=== PATIENT | male | born 1970 | race Caucasian/White ===

== ENCOUNTER 2022-06-09 08:29 | Emergency (ER) | payer OTHER, SELFPAY ==
[2022-06-09 08:36] VITALS: BP 143/88; PULSE 92; RESP 16; TEMP 37.3; O2SAT 97
--- NOTE | 2022-06-09 08:55 | ED.URI ---
HPI - URI/Sore Throat General Chief Complaint: Upper Respiratory Infection Stated Complaint: Headache,Congestion,Fatigue Time Seen by Provider: 06/09/22 08:45 Source: patient, RN notes reviewed and old records reviewed Mode of arrival: ambulatory Limitations: no limitations History of Present Illness HPI Narrative: 52-year-old male accompanied by presents to [facility] with complaints of sinus drainage, sore throat, fevers with chills and sweats,headache,body aches, fatigue since last night. Patient reports he has had COVID immunization but no booster has not had flu shot. Patient is not taking any medications [id number] for his symptoms. Patient reports highest fever 100.7F. Patient states did have COVID 3 weeks ago and she received antiviral medication he would like to receive RX for medication also. MD elicited complaint: cough and sore throat Onset (ago): day(s) (Last night) Pain scale (0-10): 4 Able to tolerate fluids by mouth: Yes Treatments prior to arrival: none Related Data Allergies Allergy/AdvReac Type Severity Reaction Status Date / Time codeine Allergy Unknown Violent Verified 06/09/22 08:39 vomiting Review of Systems Review of Systems: CONSTITUTIONAL: Reports malaise, chills, sweats, or fever. EYES: Denies visual changes, redness, or discharge. ENT: Reports rhinorrhea, congestion, sinus pain, otalgia and sore throat. CARDIOVASCULAR: Denies chest pain, palpitations, or edema. RESPIRATORY: Reports no cough.? Denies dyspnea. GASTROINTESTINAL: Denies abdominal pain, nausea, vomiting, diarrhea SKIN: Denies rash or itching. MUSCULOSKELETAL: reports myalgia. NEUROLOGIC: Reports headache. All systems reviewed & are unremarkable except as noted in HPI and below PMFSH Past Medical History Medical History Diverticulitis Diverticulitis Fatigue Hyperglycemia Keloid Lipid screening Polyarthralgia Vitamin D deficiency Surgical History Surgical History H/O vasectomy 1998 History of orthopedic surgery Knee, Wrist, Shoulder, Ankle Family History Family History Father Family history of malignant neoplasm Family history of coronary artery disease Diabetes mellitus Family history of blood dyscrasia Grandparent Family history of primary malignant neoplasm of liver Family history of throat cancer Family history of liver disease Sibling Family history of obesity Mother Family history of blood dyscrasia Depression Other Family history of cardiovascular disease Social History Social History (Updated 06/09/22 @ 09:30 by Adriane Zaidi NP) Smoking status: Never smoker Smokeless tobacco user: chewing tobacco Alcohol intake: current Drinks per week: 3 Substance use: never Living arrangements: with family Gender identity (if verbalized by the patient): Male Comments At time of signature, agree with nursing past medical, surgical, social and family history. There is no relevant family history pertinent to the presenting complaint Exam Narrative: GENERAL: Well-appearing, well-nourished, and in no acute distress. HEAD: Normocephalic EYES: PERRLA, conjunctivae clear ENT: Nares clear, turbinates edematous and erythematous, clear discharge. Mucous membranes moist. TM pearly schultz with dull light reflex bilaterally; no tragal tenderness. Oropharynx erythematous without lesions. Tonsils red enlarged and without exudate, no drooling, no hoarseness, no trismus, uvula midline red and with some swelling, post nasal discharge noted. NECK: Supple. No lymphadenopathy CHEST: Clear to auscultation, breath sounds equal. No wheezing, rhonchi, rales, or stridor. No respiratory distress, speaks in full sentences.SAO2 97% on room air HEART: Regular rate and rhythm. No murmur heard. SKIN:
== END 2022-06-09 09:21 | disposition home or self-care (01) ==
PROVIDERS: Emergency Provider Registered Nurse; PCP Family Medicine
DX: U07.1 COVID-19 (principal)
CPT/HCPCS: 87426; 87804; 99213; C9803; G0463

== ENCOUNTER 2022-10-21 08:03 | Emergency (ER) | payer OTHER, SELFPAY ==
--- NOTE | ~2022-10-21 | XR_ITS ---
Left foot Technique: AP, oblique, and lateral views were obtained. Clinical History: First metatarsal pain Findings: No acute fracture or dislocation is seen. Osseous alignment is anatomic. There is moderate degenerative change at the first metatarsophalangeal joint. Soft tissues are unremarkable. Impression: No fracture or dislocation. Moderate degenerative change of the first metatarsophalangeal joint. Reviewed, dictated and finalized at location . Impression: No fracture or dislocation. Moderate degenerative change of the first metatarsophalangeal joint.
[2022-10-21 08:14] VITALS: BP 144/100; PULSE 86; RESP 18; TEMP 36.5; O2SAT 100
--- NOTE | 2022-10-21 08:23 | ED.LOWEXIN ---
HPI - Extremity Injury (Lower) General Chief Complaint: Extremity Injury, Lower Stated Complaint: Lt Foot Pain and Swelling Source: patient Mode of arrival: ambulatory Limitations: no limitations History of Present Illness HPI Narrative: 52-year-old male presenting for complaint of left foot pain after injury last night. Pain is primarily to the base of the left great toe. He states he tripped over his dog and struck the left foot on the wall. He applied ice and elevated the foot, and took ibuprofen last night. Also obtained crutches and has been using them today. He reports the pain is worse this morning with swelling, and pain with any movement of the toe or with walking. He denies deformity, numbness, tingling, weakness of the foot. Has not taken anything for pain this morning. Related Data Allergies Allergy/AdvReac Type Severity Reaction Status Date / Time codeine Allergy Unknown Violent Verified 10/21/22 08:27 vomiting Review of Systems Review of Systems: CONSTITUTIONAL: Denies body aches, fever, chills EYES: Denies visual changes ENT: Denies rhinorrhea, congestion CARDIOVASCULAR: Denies chest pain, palpitations, or edema. RESPIRATORY: Denies cough or dyspnea. GASTROINTESTINAL: Denies abdominal pain, nausea, vomiting, or diarrhea. SKIN: Denies rash, itching, or wounds. MUSCULOSKELETAL: Reports left great toe/foot pain denies back pain, or myalgia. NEUROLOGIC: Denies headache, numbness, tingling, or weakness. PSYCH: Denies depression or anxiety. All systems reviewed & are unremarkable except as noted in HPI and below PMFSH Past Medical History Medical History Diverticulitis Diverticulitis Fatigue Hyperglycemia Keloid Lipid screening Polyarthralgia Vitamin D deficiency Surgical History Surgical History H/O vasectomy 1998 History of orthopedic surgery Knee, Wrist, Shoulder, Ankle Family History Family History Father Family history of malignant neoplasm Family history of coronary artery disease Diabetes mellitus Family history of blood dyscrasia Grandparent Family history of primary malignant neoplasm of liver Family history of throat cancer Family history of liver disease Sibling Family history of obesity Mother Family history of blood dyscrasia Depression Other Family history of cardiovascular disease Social History Social History Smoking status: Never smoker Smokeless tobacco user: chewing tobacco Alcohol intake: current Drinks per week: 3 Substance use: never Living arrangements: with family Gender identity (if verbalized by the patient): Male Comments At time of signature, I have reviewed and agree with nursing past medical, surgical, social and family history unless otherwise noted. Please see nursing chart for further information. There is no relevant family history pertinent to the presenting complaint Exam Narrative: GENERAL: Well-appearing, and in no acute distress. NECK: Supple. CHEST: Speaks in full sentences. No respiratory distress. HEART: Regular rate and rhythm. Normal and equal peripheral pulses. EXTREMITIES: Left foot 1st MTP joint with tenderness to palpation to dorsal and plantar aspects, mild swelling to joint. Nontender IP joint. Ice pack was applied, no warmth noted. Left foot has normal strength and sensation, Limited range of motion of 1st toe due to pain with movement. No bruising, No open wounds, or obvious deformity; alignment normal, pulse palpable and equal bilaterally, skin warm, dry, pink. Capillary refill less than 3 seconds. SKIN: Warm, dry, no rash. NEURO: Alert and oriented x3. PSYCH: Normal mood and affect Course Course Emergency Course: Patient is aware of diagnosis, understand
--- NOTE | 2022-10-21 08:52 | PC.NURSE ---
RADIOLOGY DISC PROVIDED
== END 2022-10-21 08:46 | disposition home or self-care (01) ==
PROVIDERS: Emergency Provider Nurse Practitioner Family; PCP Family Medicine
DX: M79.672 Pain in left foot (principal); F17.220 Nicotine dependence, chewing tobacco, uncomplicated
CPT/HCPCS: 73630; 99213; G0463

== ENCOUNTER 2022-12-22 15:33 | Outpatient (CLI) | payer OTHER, SELFPAY ==
--- NOTE | ~2022-12-22 | CT_ITS ---
EXAMINATION: CTA chest PE protocol DATE: 12/22/2022 15:53 INDICATION: Acute dyspnea TECHNIQUE: Computed tomography (CT) pulmonary angiogram of the chest was performed with 100 mL Omnipa que-350 intravenous contrast. Additional 3D reconstructions utilizing coronal maximum intensity proje ction (MIP) were performed. Automated exposure control and iterative reconstruction technique were em ployed. The dose-length product was 711.19 mGy-cm. COMPARISON: None FINDINGS: Good contrast opacification of the pulmonary arteries. There is mild streak artifact from dense contr ast in the superior vena cava and right atrium. Mild scattered respiratory motion artifact. Together this mildly decreases sensitivity in some of the smaller subsegmental pulmonary arteries particularly at the lung bases. No pulmonary embolism identified. Small lung volumes and mosaic attenuation with dependent groundglass opacities most likely representing dependent atelectasis. No pneumonia, pulmona ry edema, pleural effusion or pneumothorax. Heart size is normal. No pericardial effusion. Thoracic a chandler is normal in caliber with no dissection. No pathologically enlarged thoracic lymphadenopathy. Bi lateral mild gynecomastia. Visualized upper abdomen is unremarkable. Mild thoracic and severe lower c ervical spondylosis. IMPRESSION: 1. No pulmonary embolism or other acute cardiopulmonary disease. Reviewed, dictated and finalized at location A.
== END 2022-12-22 15:34 | disposition home or self-care (01) ==
LOC: ANHIMG 15:35
PROVIDERS: PCP Family Medicine; Visit Provider Family Medicine
DX: R06.00 Dyspnea, unspecified (principal)
CPT/HCPCS: 71275; Q9967

== ENCOUNTER 2022-12-25 08:20 | Outpatient (CLI) | payer OTHER, SELFPAY ==
[2022-12-25 08:47] LABS: Basophils Absolute Auto 0.1 K/mm3 (0.0-0.1); Basophils Percent Auto 0.8 % (0.2-1.2); Eosinophils Absolute Auto 0.4 K/mm3 (0-0.3); Eosinophils Percent Auto 5.3 % (0-4.4); Hematocrit 45.9 % (42.0-52.0); Hemoglobin 15.5 g/dL (14.0-18.0); Immature Granulocyte Absolute 0.01 K/mm3 (0.00-0.031); Immature Granulocyte Percent A 0.1 % (0-0.5); Lymphocytes Absolute Auto 1.85 K/mm3 (0.9-3.2); Lymphocytes Percent Auto 25.1 % (18.3-44.2); Mean Corpuscular HGB Conc 33.8 g/dl (32-36); Mean Corpuscular Hemoglobin 31.4 pg (26-34); Mean Corpuscular Volume 92.9 fl (80-100); Mean Platelet Volume 9.6 fl (7.4-10.4); Monocytes Absolute Auto 0.6 K/mm3 (0.1-0.6); Monocytes Percent Auto 8.5 % (2.6-8.5); Neutrophils Absolute Auto 4.4 K/mm3 (1.3-6.7); Neutrophils Percent Auto 60.2 % (45.5-73.1); Platelet Count Result 245 k/mm3 (150-375); Red Blood Count 4.94 M/mm3 (4.6-6.20); Red Cell Distribution Width 12.3 % (11.5-14.5); White Blood Count 7.4 K/mm3 (4.5-10.0)
[2022-12-25 08:50] LABS: Alanine Aminotransferase 20 U/L (6-50); Albumin Level 4.4 g/dL (3.5-5.1); Alkaline Phosphatase 61 U/L (38-126); Anion Gap 7 mmol/L (8-16); Aspartate Amino Transferase 21 U/L (17-59); Bilirubin,Total 0.5 mg/dL (0.2-1.3); Blood Urea Nitrogen 21 mg/dL (9-20); Calcium 9.1 mg/dL (8.4-10.2); Carbon Dioxide 28 mmol/L (22-30); Chloride 105 mmol/L (98-107); Estimated Glomerular Filt Rate > 60; Glucose 113 mg/dL (65-110); Potassium 4.2 mmol/L (3.4-5.0); Sodium 140 mmol/L (137-145)
[2022-12-25 09:04] LABS: Cholesterol 216 mg/dL (0-200); HDL Direct 55 mg/dL; Triglycerides 95 mg/dL (<150)
[2022-12-25 09:10] LABS: Hemoglobin A1C 5.3 % (<5.7)
[2022-12-25 09:15] LABS: LDL Cholesterol Direct 118 mg/dL
[2022-12-25 09:38] LABS: Free T4 Free Thyroxine 0.94 ng/mL (0.78-2.19)
[2022-12-25 10:36] LABS: Vitamin D 25 Hydroxy 37.8 ng/mL
[2022-12-28 17:39] LABS: Prostate Specific Antigen 0.8 ng/mL (< OR = 4.0)
== END 2022-12-25 08:21 | disposition home or self-care (01) ==
LOC: ANHLAB 08:22
PROVIDERS: PCP Family Medicine; Visit Provider Family Medicine
DX: R53.83 Other fatigue (principal); E55.9 Vitamin D deficiency, unspecified; R73.9 Hyperglycemia, unspecified; R06.00 Dyspnea, unspecified; Z13.220 Encounter for screening for lipoid disorders; Z12.5 Encounter for screening for malignant neoplasm of prostate
CPT/HCPCS: 36415; 80053; 80061; 82306; 83036; 84153; 84439; 84443; 85025; G0103

== ENCOUNTER 2023-04-30 08:38 | Emergency (ER) | payer OTHER, SELFPAY ==
--- NOTE | 2023-04-30 08:43 | ED.URI ---
HPI - URI/Sore Throat General Chief Complaint: Upper Respiratory Infection Stated Complaint: Fever Time Seen by Provider: 04/30/23 08:41 Source: patient Mode of arrival: ambulatory Limitations: no limitations History of Present Illness HPI Narrative: Aaron is a 53-year-old male patient presenting to the clinic today with complaints of fever, body aches, chills, cough, and congestion x4 days. He reports highest fever was 102.4. MD elicited complaint: sore throat and nasal congestion Related Data Home Medications Medication Instructions Recorded Confirmed No Home Medications 12/22/22 04/30/23 Allergies Allergy/AdvReac Type Severity Reaction Status Date / Time codeine AdvReac Intermediate Nausea and Verified 04/30/23 08:40 Vomiting Review of Systems Review of Systems: Pertinent positives per HPI. Patient denies any rash, headache, visual changes, dizziness, shortness of breath, chest pain, palpitations, nausea, vomiting, diarrhea, constipation, abdominal pain, or any urinary issues. [facility] Past Medical History Medical History Diverticulitis Diverticulitis Fatigue Hyperglycemia Keloid Lipid screening Polyarthralgia Vitamin D deficiency Surgical History Surgical History H/O vasectomy 1998 History of orthopedic surgery Knee, Wrist, Shoulder, Ankle Family History Family History Father Family history of malignant neoplasm Family history of coronary artery disease Diabetes mellitus Family history of blood dyscrasia Grandparent Family history of primary malignant neoplasm of liver Family history of throat cancer Family history of liver disease Sibling Family history of obesity Mother Family history of blood dyscrasia Depression Other Family history of cardiovascular disease Social History Social History Smoking status: Never smoker Smokeless tobacco user: chewing tobacco Alcohol intake: current Drinks per week: 3 Substance use: never Lack of Transportation: No Lack of Food: Never True Current Housing: Decline to Answer Concerned About Future Housing: Decline to Answer Difficulty Paying Gas/Electric Bills: Decline to Answer Difficulty Paying for Meds: Decline to Answer Currently Unemployed: Decline to Answer Education: Decline to Answer Difficulty w/ Childcare or Family Care: Decline to Answer Living arrangements: with family Gender identity (if verbalized by the patient): Male Comments At the time of my signature, I reviewed and agree with the nursing past medical, surgical, social, and family history. There is no relevant family history pertinent to the patient complaint. Exam Narrative: General: Well-developed, well nourished, in no apparent distress Head: Normocephalic, atraumatic Eyes: Pupils equally round and reactive to light bilaterally, EOM intact, sclera and conjunctive clear, no discharge, lids normal Ears: TMs intact and congested, ear canals clear, no drainage, grossly hearing normal. Nose: Nares patent, clear discharge, no inflammation, no sinus tenderness. Mouth: Oral pharynx mildly red without lesions or masses, good dentition, MMM. Neck: Supple, trachea midline, no enlargement of anterior or posterior cervical nodes, no thyroid masses or goiter palpable. Cardio: Regular rate and rhythm, s1 and s2 normal, no murmur appreciated. Resp: Clear to auscultation bilaterally, no rhonchi, rales, wheezing or rubs Course Course Emergency Course: Portions of this record may have been created with voice recognition software. Level of Care: Express Care Visit Vital Signs Vital signs: Vital signs reviewed MDM - URI/Sore Throat MDM Narrative Medical decision making narrative: At the time o
[2023-04-30 08:51] VITALS: BP 134/85; PULSE 77; RESP 18; TEMP 35.9; O2SAT 96
== END 2023-04-30 09:06 | disposition home or self-care (01) ==
PROVIDERS: Emergency Provider Nurse Practitioner Family; PCP Family Medicine
DX: J10.1 Influenza due to other identified influenza virus with other respiratory manifestations (principal); F17.220 Nicotine dependence, chewing tobacco, uncomplicated
CPT/HCPCS: 87804; 99213; G0463

== ENCOUNTER 2023-08-25 09:24 | Outpatient (CLI) | payer OTHER, SELFPAY ==
[2023-08-25 17:59] LABS: Iron 111 ug/dL (49-181)
[2023-08-25 18:17] LABS: Percent Iron Saturation 29 % (20-50)
[2023-08-27 01:28] LABS: LH 7.4 mIU/mL (1.5-9.3); Prolactin 5.9 ng/mL (2.0-18.0)
[2023-08-29 10:18] LABS: Testosterone Free 34.2 pg/mL (35.0-155.0); Testosterone Total 265 ng/dL (250-1100)
== END 2023-08-25 09:25 | disposition home or self-care (01) ==
LOC: ANHGOSHLAB 09:25
PROVIDERS: PCP Internal Medicine; Visit Provider Internal Medicine
DX: E29.1 Testicular hypofunction (principal)
CPT/HCPCS: 36415; 83002; 83540; 83550; 84146; 84402; 84403

== ENCOUNTER 2023-09-09 13:10 | Outpatient (CLI) | payer OTHER, SELFPAY | END 2023-09-09 13:11 | disposition home or self-care (01) | LOC: ANHGOSHLAB 13:12 | PROVIDERS: PCP Internal Medicine; Visit Provider Family Medicine | DX: D64.9 Anemia, unspecified (principal) | CPT/HCPCS: 36415; 82728 ==

== ENCOUNTER 2023-11-30 09:23 | Outpatient (CLI) | payer OTHER, SELFPAY ==
[2023-11-30 15:51] LABS: Basophils Absolute Auto 0.1 K/mm3 (0.0-0.1); Basophils Percent Auto 0.8 % (0.2-1.2); Eosinophils Absolute Auto 0.4 K/mm3 (0-0.3); Eosinophils Percent Auto 4.6 % (0-4.4); Hematocrit 52.9 % (42.0-52.0); Immature Granulocyte Absolute 0.02 K/mm3 (0.00-0.031); Immature Granulocyte Percent A 0.2 % (0-0.5); Mean Corpuscular Hemoglobin 31.6 pg (26-34); Mean Platelet Volume 10.1 fl (7.4-10.4); Monocytes Absolute Auto 0.7 K/mm3 (0.1-0.6); Monocytes Percent Auto 7.3 % (2.6-8.5); Neutrophils Absolute Auto 5.9 K/mm3 (1.3-6.7); Neutrophils Percent Auto 65.1 % (45.5-73.1); Platelet Count Result 287 k/mm3 (150-375); Red Blood Count 5.69 M/mm3 (4.6-6.20); Red Cell Distribution Width 12.8 % (11.5-14.5); White Blood Count 9.1 K/mm3 (4.5-10.0)
[2023-11-30 18:23] LABS: Alanine Aminotransferase 23 U/L (6-50); Albumin Level 4.5 g/dL (3.5-5.1); Alkaline Phosphatase 64 U/L (38-126); Anion Gap 9 mmol/L (4-12); Aspartate Amino Transferase 56 U/L (17-59); Bilirubin,Total 0.5 mg/dL (0.2-1.3); Blood Urea Nitrogen 15 mg/dL (9-20); Calcium 9.5 mg/dL (8.4-10.2); Carbon Dioxide 31 mmol/L (22-30); Chloride 98 mmol/L (98-107); Estimated Glomerular Filt Rate > 60; Glucose 89 mg/dL (65-110); Potassium 4.4 mmol/L (3.4-5.0); Sodium 138 mmol/L (137-145)
[2023-11-30 18:54] LABS: Prostate Specific Antigen 0.8 ng/mL (< OR = 4.0)
[2023-12-05 12:28] LABS: Testosterone Free 240.3 pg/mL (35.0-155.0); Testosterone Total 990 ng/dL (250-1100)
== END 2023-11-30 09:24 | disposition home or self-care (01) ==
LOC: ANHGOSHLAB 09:24
PROVIDERS: PCP Internal Medicine; Visit Provider Clinical Nurse Specialist
DX: E29.1 Testicular hypofunction (principal)
CPT/HCPCS: 36415; 80053; 84153; 84402; 84403; 85025

== ENCOUNTER 2024-06-24 09:39 | Emergency (ER) | payer OTHER, SELFPAY ==
--- NOTE | ~2024-06-24 | XR_ITS ---
CHEST RADIOGRAPH, PA AND LATERAL CLINICAL HISTORY: Cough for weeks . COMPARISON: 06/05/2014 TECHNIQUE: PA and lateral views of the chest. FINDINGS The cardiomediastinal silhouette is unremarkable. Interval development of patchy opacification within the superior segment of the left lower lobe with air bronchograms consistent with pneumonia. The remainder of the lungs are clear. IMPRESSION: Left lower lobe pneumonia, as detailed above. Reviewed, dictated and finalized at location A.
--- OUTSIDE RECORDS SUMMARY | 2024-06-24 09:48 | XMS_ITS | Clinical Summary ---
Author Organization [address] Address [address] [place] [address] Care Team Providers Care Events Director Name Role Phone No, Physician Primary Care Provider [phone] Allergies Active Allergy Reactions Criticality Noted Date Comments Codeine Nausea & Vomiting Low 12/30/2020 Medications No known medications Active Problems Problem Noted Date Diagnosed Date Rupture of distal biceps tendon, right, initial encounter 12/30/2020 Assessment & Plan (02/03/2021 11:27 AM CDT): Overall patient has done very well. He has been able to return to work full duties without restrictions. He does occasionally have some anterior elbow pain around the distal biceps musculotendinous junction but this pain does not limit his daily activities or normal work activities. He is not taking medication to manage his symptoms consistently. He was given a note to return to work full duties without restrictions. He will be released at [facility]. Assessment & Plan (01/08/2021 3:02 PM CDT): Repeat MRI of the right elbow shows partial tear involving the distal biceps insertion onto the radial tuberosity without evidence of tendon retraction. There is some bursitis around the radial tuberosity. Treatment options were discussed. Patient reports his symptoms have continued to decrease. He has been performing his normal job duties but has been avoiding lifting. Clinically he has mild pain with with resisted elbow flexion as well as resisted elbow supination however his pain is lateral to the biceps muscle belly and not near the biceps insertion. He was given a note to return to work full duties without restrictions. He will follow up with me in 3 weeks. If he is doing well at that time, he will be released at [facility]. Assessment & Plan (12/30/2020 5:35 PM CDT): Treatment options were discussed. The MRI of the right elbow shows edema along the course of the biceps tendon however the MRI does not show the distal biceps insertion onto the radial tuberosity on the axial sequences. The images are overall poor quality. I recommend MRI of the right elbow in a high field strength magnet that adequately visualize is the insertion. The patient has had conservative treatment the form of activity modification and physical therapy and still has significant weakness with forearm pronation, supination and elbow flexion. Clinically he examines like a high-grade partial tear as the distal biceps tendon is palpable in the antecubital fossa. He was given a note to return to work with light duty restrictions of no lifting more than 10 lb on the right, no climbing. Follow up with me once the MRI is completed. 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
--- OUTSIDE RECORDS SUMMARY | 2024-06-24 09:48 | XMS_ITS | Referral Summary ---
Author Organization [address] Address [address] [place] [address] Care Team Providers Care Elementary Science Teacher Name Role Phone No, Physician Primary Care Provider [phone] Allergies Active Allergy Reactions Criticality Noted Date [...] without restrictions. He will be released at [facility]. Assessment & Plan (01/08/2021 3:02 PM [...] that time, he will be released at [facility]. Assessment & Plan (12/30/2020 5:35 PM [...] with me once the MRI is completed. 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
[2024-06-24 09:56] VITALS: BP 159/109; PULSE 94; RESP 18; TEMP 37.1; O2SAT 97
--- NOTE | 2024-06-24 09:58 | ED.URI ---
HPI - URI/Sore Throat General Chief Complaint: Upper Respiratory Infection Stated Complaint: cold like Time Seen by Provider: 06/24/24 10:07 Source: patient and RN notes reviewed Mode of arrival: ambulatory Limitations: no limitations History of Present Illness HPI Narrative: 54-year-old male presents with concern for 4 day history of cough, congestion. Reports he feels rattling in his chest. Reports he has been running a fever about 101 daily. He has been taking [id number] medicines but is not taking any today. MD elicited complaint: cough Related Data Allergies Allergy/AdvReac Type Severity Reaction Status Date / Time codeine AdvReac Intermediate Nausea and Verified 12/06/23 09:56 Vomiting Review of Systems Review of Systems: CONSTITUTIONAL: For malaise, fever. EYES: Denies visual changes, redness, or discharge. ENT: Reports rhinorrhea, congestion CARDIOVASCULAR: Denies chest pain, palpitations, or edema. RESPIRATORY: Reports cough, chest congestion. Denies dyspnea. GASTROINTESTINAL: Denies abdominal pain, nausea, vomiting, diarrhea SKIN: Denies rash or itching. All systems reviewed & are unremarkable except as noted in HPI and below PMFSH Past Medical History Medical History (Updated 06/24/24 @ 10:58 by Cristiana Conti NP) Long-term current use of testosterone cypionate Hypogonadism in male Diverticulitis Fatigue Vitamin D deficiency Lipid screening Hyperglycemia Polyarthralgia Diverticulitis Keloid Surgical History Surgical History H/O vasectomy 1998 History of orthopedic surgery Knee, Wrist, Shoulder, Ankle Family History Family History Father Family history of malignant neoplasm Family history of coronary artery disease Diabetes mellitus Family history of blood dyscrasia Grandparent Family history of primary malignant neoplasm of liver Family history of throat cancer Family history of liver disease Sibling Family history of obesity Mother Family history of blood dyscrasia Depression Other Family history of cardiovascular disease Social History Social History Smoking status: Never smoker Smokeless tobacco user: chewing tobacco Alcohol intake: current Drinks per week: 3 Substance use: never Do You Feel Safe in your Home?: Yes Lack of Transportation: No Lack of Food: Never True Current Housing: Decline to Answer Concerned About Future Housing: Decline to Answer Difficulty Paying Gas/Electric Bills: Decline to Answer Difficulty Paying for Meds: Decline to Answer Currently Unemployed: Decline to Answer Education: Decline to Answer Difficulty w/ Childcare or Family Care: Decline to Answer Living arrangements: with family Gender identity (if verbalized by the patient): Male Comments At time of signature, agree with nursing past medical, surgical, social and family history. There is no relevant family history pertinent to the presenting complaint Exam Narrative: GENERAL: Nontoxic-appearing, well-nourished, and in no acute distress. HEAD: Normocephalic EYES: PERRLA, conjunctivae clear ENT: Nares clear. Mucous membranes moist. TM pearly schultz with sharp light reflex bilaterally; no tragal tenderness. Oropharynx not erythematous without lesions. Tonsils not enlarged and without exudate, no drooling, no hoarseness, no trismus, uvula midline. NECK: Supple. No lymphadenopathy CHEST: Clear to auscultation, breath sounds diminished in left lower lobe. No wheezing, rhonchi, rales, or stridor. No respiratory distress, speaks in full sentences. Cough noted HEART: Regular rate and rhythm. No murmur heard. SKIN: Warm, dry, no rash. NEURO: Alert and oriented x3. PSYCH: Normal mood and affect Course Course Emergency Course: Patient is aware of diagnosis, understands and agrees to treatment plan. Anticipatory guidance given. Patient agrees to follow-up as directed and is aware of reasons to seek care at the emergency department. Portions of this record may have been created with voice recognition software Level of Care: Express Care Visit Vital Signs Vital signs: Reviewed. MDM - URI/Sore Throat MDM Narrative Medical decision making narrative: Differential diagnosis considered: Regalado virus, strep pharyngitis, allergic rhinitis, upper respiratory tract infection, sinusitis, rhinosinusitis, nasopharyngitis. viral pharyngitis, otitis media, otitis externa, pneumonia, bronchitis, viral cough syndrome, viral syndrome, and influenza. Exam findings show no acute concerns or changes; patient is non-toxic appearing and is in no distress. Patient is appropriate for outpatient treatment and follow-up. Lab Data Attestation: I reviewed the patient's lab results. Imaging Data My impression: Images reviewed, interpreted by radiologist, agree, see report. Radiologist's impression: CHEST RADIOGRAPH, PA AND LATERAL CLINICAL HISTORY: Cough for weeks . COMPARISON: 06/05/2014 TECHNIQUE: PA and lateral views of the chest. FINDINGS The cardiomediastinal silhouette is unremarkable. Interval development of patchy opacification within the superior segment of the left lower lobe with air bronchograms consistent with pneumonia. The remainder of the lungs are clear. IMPRESSION: Left lower lobe pneumonia, as detailed above. Critical Care Time Critical Care Time Critical Care Time: No Discharge Plan Discharge Clinical Impression: Pneumonia Patient Disposition: Home, Self-Care Condition: Stable Instructions: Antibiotic Form, Pneumonia (ED) Additional Instructions: Pneumonia is a lung infection that can cause a fever, cough, and trouble breathing. Please continue all antibiotics as directed until complete. Nutrition is important - eat small frequent meals. Get lots of rest and drink fluids. Call your Primary Care Doctor upon arrival home from the hospital and make a follow-up appointment in 3-5 days. If your cough worsens, you develop a persistent fever you develop shaking chills, a fast heartbeat, trouble breathing and/or feel you are are breathing much faster than usual, call your Primary Care Doctor or go to the ER. Make sure you wash your hands frequently. Patient Language: Trinidadian Prescriptions: New azithromycin [Zithromax Z-Xavier] 250 mg tablet See Rx Instructions .ROUTE .COMPLEX Qty: 6 0RF Rx Instructions: take 500 mg today (day 1), then 250 mg for 4 days (days 2-5) methylprednisolone [Medrol (Xavier)] 4 mg tablets,dose pack See Rx Instructions .ROUTE .COMPLEX Qty: 21 0RF Rx Instructions: orally per package directions No Action (DME) BD Eclipse 25 gauge x 1 needle See Rx Instructions .Route Qty: 100 1RF Rx Instructions: USE TO INJECT TESTOSTERONE (DME) BD Luer-Mita Syringe 3 mL 20 gauge x 1 syringe See Rx Instructions .Route Qty: 100 0RF Rx Instructions: Use to draw up testosterone testosterone cypionate [Depo-Testosterone] 200 mg/mL oil 140 mg IM WEEKLY Qty: 10 1RF Follow-up/Referrals: Janusz Purdy, [Primary Care Provider] - Time of Disposition: 10:58
[2024-06-24 10:12] LABS: EDCOVIDSCREEN Negative (Negative); EDINFLUASCREEN Negative (Negative); EDINFLUBSCREEN Negative (Negative)
== END 2024-06-24 11:03 | disposition home or self-care (01) ==
PROVIDERS: Emergency Provider Nurse Practitioner; PCP Internal Medicine
DX: J18.9 Pneumonia, unspecified organism (principal); Z20.822 Contact with and (suspected) exposure to COVID-19; F17.220 Nicotine dependence, chewing tobacco, uncomplicated; Z98.52 Vasectomy status
CPT/HCPCS: 71046; 87426; 87804; 99213; G0463

== ENCOUNTER 2024-08-13 15:41 | Outpatient (CLI) | payer OTHER, SELFPAY ==
--- OUTSIDE RECORDS SUMMARY | 2024-08-13 15:44 | XMS_ITS | Clinical Summary ---
Author Organization [address] Address [address] [place] [address] Care Team Providers Care Customer Energy Specialist Name Role Phone No, Physician Primary Care Provider [phone] Allergies Active Allergy Reactions Criticality Noted Date [...] without restrictions. He will be released at [facility]. Assessment & Plan (01/08/2021 3:02 PM CDT): [...] that time, he will be released at [facility]. 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
--- OUTSIDE RECORDS SUMMARY | 2024-08-13 15:44 | XMS_ITS | Referral Summary ---
Author Organization [address] Address [address] [place] [address] Care Team Providers Care Farm Machinery Engine Mechanic Name Role Phone No, Physician Primary Care Provider [phone] Allergies Active Allergy Reactions Criticality Noted Date [...] without restrictions. He will be released at [facility]. Assessment & Plan (01/08/2021 3:02 PM [...] that time, he will be released at [facility]. 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
[2024-08-13 19:20] LABS: Basophils Absolute Auto 0.1 K/mm3 (0.0-0.1); Basophils Percent Auto 0.8 % (0.2-1.2); Eosinophils Absolute Auto 0.4 K/mm3 (0-0.3); Eosinophils Percent Auto 4.5 % (0-4.4); Hematocrit 53.4 % (42.0-52.0); Hemoglobin 17.4 g/dL (14.0-18.0); Immature Granulocyte Absolute 0.02 K/mm3 (0.00-0.031); Immature Granulocyte Percent A 0.2 % (0-0.5); Lymphocytes Absolute Auto 2.22 K/mm3 (0.9-3.2); Lymphocytes Percent Auto 24.4 % (18.3-44.2); Mean Corpuscular HGB Conc 32.6 g/dl (32-36); Mean Corpuscular Hemoglobin 30.7 pg (26-34); Mean Corpuscular Volume 94.2 fl (80-100); Monocytes Absolute Auto 0.7 K/mm3 (0.1-0.6); Monocytes Percent Auto 7.9 % (2.6-8.5); Neutrophils Absolute Auto 5.6 K/mm3 (1.3-6.7); Neutrophils Percent Auto 62.2 % (45.5-73.1); Platelet Count Result 259 k/mm3 (150-375); Red Blood Count 5.67 M/mm3 (4.6-6.20); Red Cell Distribution Width 13.6 % (11.5-14.5); White Blood Count 9.1 K/mm3 (4.5-10.0)
[2024-08-13 20:38] LABS: Alanine Aminotransferase 26 U/L (6-50); Albumin Level 4.7 g/dL (3.5-5.1); Alkaline Phosphatase 63 U/L (38-126); Anion Gap 10 mmol/L (4-12); Aspartate Amino Transferase 37 U/L (17-59); Bilirubin,Total 0.4 mg/dL (0.2-1.3); Blood Urea Nitrogen 14 mg/dL (9-20); Calcium 9.4 mg/dL (8.4-10.2); Carbon Dioxide 29 mmol/L (22-30); Chloride 102 mmol/L (98-107); Estimated Glomerular Filt Rate > 60; Glucose 97 mg/dL (65-110); Potassium 4.2 mmol/L (3.4-5.0); Sodium 141 mmol/L (137-145)
[2024-08-13 21:06] LABS: Prostate Specific Antigen 0.9 ng/mL (< OR = 4.0)
== END 2024-08-13 15:42 | disposition home or self-care (01) ==
PROVIDERS: PCP Internal Medicine; Visit Provider Internal Medicine
DX: Z12.5 Encounter for screening for malignant neoplasm of prostate (principal); E29.1 Testicular hypofunction; Z79.890 Hormone replacement therapy
CPT/HCPCS: 36415; 80053; 84153; 84402; 84403; 85025

== ENCOUNTER 2024-08-26 19:03 | Emergency (ER) | payer OTHER, SELFPAY ==
--- OUTSIDE RECORDS SUMMARY | 2024-08-26 19:06 | XMS_ITS | Referral Summary ---
Author Organization [address] Address [address] [place] [address] Care Team Providers Care Seasonal Delivery Driver Name Role Phone No, Physician Primary Care Provider [phone] Allergies Active Allergy Reactions Criticality Noted Date [...] without restrictions. He will be released at [facility]. Assessment & Plan (01/08/2021 3:02 PM CDT): [...] that time, he will be released at [facility]. 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
--- OUTSIDE RECORDS SUMMARY | 2024-08-26 19:06 | XMS_ITS | Clinical Summary ---
Author Organization [address] Address [address] [place] [address] Care Team Providers Care Protective Services Officer Name Role Phone No, Physician Primary Care Provider [phone] Allergies Active Allergy Reactions Criticality Noted Date [...] without restrictions. He will be released at [facility]. Assessment & Plan (01/08/2021 3:02 [...] that time, he will be released at [facility]. 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
[2024-08-26 19:11] VITALS: BP 144/97; PULSE 90; RESP 18; TEMP 36.4; O2SAT 100
--- NOTE | 2024-08-26 19:23 | ED.GENADULT ---
HPI - General Adult General Chief complaint: Chest Pain Stated complaint: dizziness , cardiac event History of Present Illness HPI narrative: Aaron Mcneal Is a 54-year-old male who is on testosterone weekly who presents today with complaints of having a cardiac event. He states that he was doing yard work and felt like he was getting some indigestion so he went inside and took some Tums. He shortly after went to throw something away and felt like he was going to pass out, he states that he then was trying to get to his and then had to go on all fours good he felt like he was going to pass out. He states that now he feels very weak all over he has a pain in the middle of his mid back and reports of having bilateral upper rib discomfort. Related Data Allergies Allergy/AdvReac Type Severity Reaction Status Date / Time codeine AdvReac Intermediate Nausea and Verified 08/26/24 19:18 Vomiting Review of Systems Review of Systems: All systems reviewed & are unremarkable except as noted in HPI and below PMFSH Past Medical History Medical History Long-term current use of testosterone cypionate Hypogonadism in male Diverticulitis Fatigue Vitamin D deficiency Lipid screening Hyperglycemia Polyarthralgia Diverticulitis Keloid Surgical History Surgical History H/O vasectomy 1998 History of orthopedic surgery Knee, Wrist, Shoulder, Ankle Family History Family History Father Family history of malignant neoplasm Family history of coronary artery disease Diabetes mellitus Family history of blood dyscrasia Grandparent Family history of primary malignant neoplasm of liver Family history of throat cancer Family history of liver disease Sibling Family history of obesity Mother Family history of blood dyscrasia Depression Other Family history of cardiovascular disease Social History Social History Smoking status: Never smoker Smokeless tobacco user: chewing tobacco Alcohol intake: current Drinks per week: 3 Substance use: never Do You Feel Safe in your Home?: Yes Lack of Transportation: No Lack of Food: Never True Current Housing: Decline to Answer Concerned About Future Housing: Decline to Answer Difficulty Paying Gas/Electric Bills: Decline to Answer Difficulty Paying for Meds: Decline to Answer Currently Unemployed: Decline to Answer Education: Decline to Answer Difficulty w/ Childcare or Family Care: Decline to Answer Living arrangements: with family Gender identity (if verbalized by the patient): Male Exam Narrative: GENERAL:well-nourished, HEAD: Normocephalic, atraumatic. EYES: PERRLA and EOMI. ENT: Nares clear, no rhinorrhea or epistaxis. Mucous membranes moist. NECK: Supple. No adenopathy or masses. No carotid bruits or JVD CHEST: No respiratory distress. No wheezes rales or rhonchi HEART: Regular rate and rhythm. No murmur heard. Normal peripheral pulses. ABDOMEN: Soft, nontender, nondistended, normal active bowel sounds. EXTREMITIES: Normal range of motion. No edema. SKIN: Warm, dry, no rash. NEURO: No focal deficits. Alert and oriented x3. PSYCH: Normal mood and affect. Course Course Level of Care: Express Care Visit Vital Signs Vital signs: Vital Signs Temperature 36.4 C L 08/26/24 19:11 Pulse Rate 90 08/26/24 19:11 Respiratory Rate 18 08/26/24 19:11 Blood Pressure 144/97 H 08/26/24 19:11 Pulse Oximetry 100 08/26/24 19:11 Oxygen Delivery Room Air 08/26/24 19:11 Temperature 36.4 C L 08/26/24 19:11 Pulse Rate 90 08/26/24 19:11 Respiratory Rate 18 08/26/24 19:11 Blood Pressure 144/97 H 08/26/24 19:11 Pulse Oximetry 100 08/26/24 19:11 Oxygen Delivery Room Air 08/26/24 19:11 Medical Decision Making [facility] Narrative Medical decision making narrative: Was patient presenting with cardiac symptoms chest pain feeling generalized weakness syncope and the patient know that he will need to go to the emergency department for more workup labs. He is agreeable to this but refusing to take in the ambulance. I talked with Dr. Matias in the emergency department who accepts transfer. Medical Records Medical records reviewed: Yes I reviewed the external patient's medical records. Vital Signs Vital Signs: Vital Signs Temperature 36.4 C L 08/26/24 19:11 Pulse Rate 90 08/26/24 19:11 Respiratory Rate 18 08/26/24 19:11 Blood Pressure 144/97 H 08/26/24 19:11 Pulse Oximetry 100 08/26/24 19:11 Oxygen Delivery Room Air 08/26/24 19:11 Temperature 36.4 C L 08/26/24 19:11 Pulse Rate 90 08/26/24 19:11 Respiratory Rate 18 08/26/24 19:11 Blood Pressure 144/97 H 08/26/24 19:11 Pulse Oximetry 100 08/26/24 19:11 Oxygen Delivery Room Air 08/26/24 19:11 Vitals reviewed by me ECG Data EKG #1: ECG completion date: 08/26/24 ECG completion time: 19:15 Prior ECG tracings: not available for review Interpretation: sinus rhythm, rate 87, MT 173, QRS 106, QT/QTc 335/380 Discharge Plan Discharge Clinical Impression: Weakness generalized Chest pain Qualifiers: Chest pain type: unspecified Qualified Code(s): R07.9 - Chest pain, unspecified Patient Disposition: Acute Care Hospital Condition: Stable Patient Language: Palauan Prescriptions: No Action (DME) BD Eclipse 25 gauge x 1 needle See Rx Instructions .Route Qty: 100 1RF Rx Instructions: USE TO INJECT TESTOSTERONE (DME) BD Luer-Mita Syringe 3 mL 20 gauge x 1 syringe See Rx Instructions .Route Qty: 100 0RF Rx Instructions: Use to draw up testosterone testosterone cypionate [Depo-Testosterone] 200 mg/mL oil 140 mg IM WEEKLY Qty: 10 1RF Follow-up/Referrals: Janusz Purdy DO [Primary Care Provider] - Time of Disposition: 19:31
--- NOTE | 2024-08-26 20:25 | ECG_ITS ---
Test Date: 2024-08-26 19:42:49 Measurements Intervals [place] Rate: 86 P: 21 VT: 182 QRS: -9 QRSD: 96 T: 8 QT: 327 QTc: 392 Interpretive Statements SINUS RHYTHM Compared to ECG 08/26/2024 19:15:54 No significant changes Electronically Signed On 08-27-2024 14:56:19 CDT by Elio Minaya M.D.
== END 2024-08-26 19:22 | disposition short-term general hospital (02) ==
PROVIDERS: Emergency Provider Nurse Practitioner Family; PCP Internal Medicine
DX: R53.1 Weakness (principal); R07.9 Chest pain, unspecified; F17.220 Nicotine dependence, chewing tobacco, uncomplicated; Z98.52 Vasectomy status
CPT/HCPCS: 93005; 99213; G0463

== ENCOUNTER 2024-08-26 19:36 | Emergency (ER) | payer OTHER, SELFPAY ==
[2024-08-26] VITALS (15 sets, daily range): BP systolic 153–165; BP diastolic 102–103; PULSE 80–92; RESP 17–30; O2SAT 95–99
--- NOTE | ~2024-08-26 | CT_ITS ---
CT chest abdomen pelvis w con Ordering provider: Almaz Tam APRN History: 54 years Male with . chest pain, near syncopal episode, abdominal disco . Comparison: None. Technique: CT chest with IV contrast. CT abdomen and pelvis CT abdomen and pelvis with IV and with or al contrast. Radiation reduction technique utilized.The dose-length product was 1142.16 mGy-cm. 100 mL Omnipaque 350 was given IV. FINDINGS: CHEST: --VISUALIZED THORACIC INLET: Normal. --MEDIASTINUM: Aorta/coronary arteries: The thoracic aorta is normal. Heart/other: The heart is not enlarged. Lymph nodes: No mediastinal or hilar adenopathy. --LUNGS: Minimal atelectatic changes seen in the left lower lobe laterally early pneumonia is not exc luded. Follow-up advised. No pulmonary nodules or masses. No 0effusions. No pneumothorax. --MUSCULOSKELETAL: Soft tissues: The superficial soft tissues are normal. Bones: Age appropriate degenerative changes of the spine. No suspicious bony lytic or sclerotic lesio ns. ABDOMEN/PELVIS: --MUSCULOSKELETAL: Bones: Age appropriate degenerative changes of the spine. No suspicious bony lytic or sclerotic lesio ns. Bilateral sacroiliitis. Superficial soft tissues: Bilateral fat containing inguinal hernias. Otherwise, The superficial soft tissues are normal. --UPPER ABDOMINAL ORGANS: Liver: Fat infiltration. Gallbladder: Thickening of the wall is noted. Pericholecystic edema is noted. Acute cholecystitis is possible. No stones seen. Clinical correlation is advised. Spleen: Normal. Stomach/duodenum: Normal. Pancreas: Normal. Adrenals: Normal. Kidneys: Normal. --PELVIC ORGANS: The bladder is normal. No bladder stones. Contrast is seen in the urinary bladder. Slightly enlarged prostate. --BOWEL AND MESENTERY: Colon: Mild diverticulosis without diverticulitis sigmoid colon. Normal appendix. Small Bowel: Normal. No obstruction. Peritoneum/mesentery: No free air or free fluid. No mesenteric lymphadenopathy. --RETROPERITONEUM: Normal aorta. No retroperitoneal lymphadenopathy. IMPRESSION: CHEST: 1. No pulmonary embolism or aortic dissection. 2. Minimal opacification the left lung base which may indicate minimal atelectasis versus early pneu monia. Follow-up advised. ABDOMEN/PELVIS: 1. Distended gallbladder with edematous thickened which may indicate cholecystitis. Clinical correla tion advised. 2. No evidence of diverticulitis, appendicitis or intestinal obstruction. 3. Bilateral fat containing inguinal hernias. 4. Fat infiltration of the liver. Reviewed, dictated and finalized at location A. IMPRESSION: CHEST: 1. No pulmonary embolism or aortic dissection. 2. Minimal opacification the left lung base which may indicate minimal atelect asis versus early pneumonia. Follow-up advised. ABDOMEN/PELVIS: 1. Distended gallbladder with edematous thickened which may indicate cholecyst itis. Clinical correlation advised. 2. No evidence of diverticulitis, appendicitis or intestinal obstruction. 3. Bilateral fat containing inguinal hernias. 4. Fat infiltration of the liver.
--- NOTE | ~2024-08-26 | XR_ITS ---
XR chest 2V Ordering provider: Willie Matias MD History: 54 years Male with . chest pain . Comparison: June 24, 2024 FINDINGS: MEDIASTINUM: The cardiac silhouette is slightly enlarged. LUNGS: No infiltrates, effusions or pneumothorax. OTHER: No free air under the diaphragm. Degenerative changes of the spine. IMPRESSION: No acute cardiopulmonary pathology. Reviewed, dictated and finalized at location A.
--- NOTE | 2024-08-26 19:48 | ECG_ITS ---
Test Date: 2024-08-26 19:15:54 Measurements Intervals [place] Rate: 87 P: 30 UT: 173 QRS: 12 QRSD: 106 T: 26 QT: 335 QTc: 405 Interpretive Statements SINUS RHYTHM No previous ECG available for comparison Electronically Signed On 08-26-2024 20:53:42 CDT by Elio Minaya M.D.
[2024-08-26 20:03] LABS: Basophils Absolute Auto 0.1 K/mm3 (0.0-0.1); Basophils Percent Auto 0.5 % (0.2-1.2); Eosinophils Absolute Auto 0.5 K/mm3 (0-0.3); Eosinophils Percent Auto 5.1 % (0-4.4); Hematocrit 51.4 % (42.0-52.0); Hemoglobin 17.5 g/dL (14.0-18.0); Immature Granulocyte Absolute 0.02 K/mm3 (0.00-0.031); Immature Granulocyte Percent A 0.2 % (0-0.5); Lymphocytes Absolute Auto 1.81 K/mm3 (0.9-3.2); Lymphocytes Percent Auto 17.6 % (18.3-44.2); Mean Platelet Volume 9.4 fl (7.4-10.4); Monocytes Absolute Auto 0.8 K/mm3 (0.1-0.6); Monocytes Percent Auto 7.6 % (2.6-8.5); Neutrophils Absolute Auto 7.1 K/mm3 (1.3-6.7); Platelet Count Result 247 k/mm3 (150-375); Red Blood Count 5.65 M/mm3 (4.6-6.20); Red Cell Distribution Width 13.2 % (11.5-14.5); White Blood Count 10.3 K/mm3 (4.5-10.0)
[2024-08-26 20:14] LABS: Prothrombin Time 13.8 Seconds (11.1-14.7)
[2024-08-26 20:15] LABS: Alanine Aminotransferase 24 U/L (6-50); Albumin Level 4.5 g/dL (3.5-5.1); Alkaline Phosphatase 54 U/L (38-126); Anion Gap 10 mmol/L (4-12); Aspartate Amino Transferase 26 U/L (17-59); Bilirubin,Total 0.5 mg/dL (0.2-1.3); Blood Urea Nitrogen 20 mg/dL (9-20); Calcium 9.5 mg/dL (8.4-10.2); Carbon Dioxide 26 mmol/L (22-30); Chloride 103 mmol/L (98-107); Estimated CRCL calculation 86 ml/min; Estimated Glomerular Filt Rate > 60; Glucose 111 mg/dL (65-110); Lipase 55 U/L (23-300); Partial Thromboplastin Time 29.3 Seconds (22.3-36.8); Potassium 3.7 mmol/L (3.4-5.0); Sodium 139 mmol/L (137-145)
[2024-08-26 20:26] LABS: Troponin I < 0.012 ng/mL (0.000-0.034)
--- NOTE | 2024-08-26 20:42 | ED.CHESTPAIN ---
HPI - Chest Pain General Chief Complaint: Chest Pain Stated Complaint: chest pain Time Seen by Provider: 08/26/24 20:02 History of Present Illness HPI narrative: Patient is a 54-year-old male who presents to the ER following a near syncopal episode. He reports he was working outside today. Patient started experiencing GERD so he went inside and took Tums. He reports he took a shower, sat on the couch, and started feeling nauseated. Patient reports he got up and became dizzy when standing. He reports he dropped to his knees and call for his . Patient got up again and once again felt dizzy. His reports he looked pale and ashy. Patient denies loss of consciousness. He reports he went to his primary care provider 2 weeks ago and had high blood pressure but everything else was within normal limits. Patient endorses mild right upper quadrant abdominal pain that radiates to his back. He denies any shortness of breath, urinary symptoms, lower extremity edema, headaches or fevers. Patient endorses a history of cholecystitis and hypertension but he is not medicated for the hypertension yet. Related Data Allergies Allergy/AdvReac Type Severity Reaction Status Date / Time codeine AdvReac Intermediate Nausea and Verified 08/26/24 19:18 Vomiting Review of Systems Review of Systems: All systems reviewed & are unremarkable except as noted in HPI and below PMFSH Past Medical History Medical History Long-term current use of testosterone cypionate Hypogonadism in male Diverticulitis Fatigue Vitamin D deficiency Lipid screening Hyperglycemia Polyarthralgia Diverticulitis Keloid Surgical History Surgical History H/O vasectomy 1998 History of orthopedic surgery Knee, Wrist, Shoulder, Ankle Family History Family History Father Family history of malignant neoplasm Family history of coronary artery disease Diabetes mellitus Family history of blood dyscrasia Grandparent Family history of primary malignant neoplasm of liver Family history of throat cancer Family history of liver disease Sibling Family history of obesity Mother Family history of blood dyscrasia Depression Other Family history of cardiovascular disease Social History Social History Smoking status: Never smoker Smokeless tobacco user: chewing tobacco Alcohol intake: current Drinks per week: 3 Substance use: never Do You Feel Safe in your Home?: Yes Lack of Transportation: No Lack of Food: Never True Current Housing: Decline to Answer Concerned About Future Housing: Decline to Answer Difficulty Paying Gas/Electric Bills: Decline to Answer Difficulty Paying for Meds: Decline to Answer Currently Unemployed: Decline to Answer Education: Decline to Answer Difficulty w/ Childcare or Family Care: Decline to Answer Living arrangements: with family Gender identity (if verbalized by the patient): Male Exam Narrative: GENERAL: Well appearing, well-nourished, non-toxic, in no acute distress. HEAD: Normocephalic, atraumatic. NECK: Supple. No adenopathy, no masses. RESPIRATORY: Airway patent, respirations nonlabored. Clear to auscultation bilaterally, no rales, rhonchi, wheezing. CARDIOVASCULAR: Regular rate and rhythm without murmurs, rubs, or gallops. Peripheral pulses 2+ and equal bilaterally. ABDOMINAL: Soft, tender RUQ, nondistended, no hepatosplenomegaly. Normoactive BS. + Handy's sign MUSCULOSKELETAL: Moves all extremities. Strength/ROM intact without gross deformities. SKIN: Warm, dry, normal color. No rashes. NEURO: A&O X3. Speech clear. Cranial nerves II-XII intact. No ataxic movements. PSYCHIATRIC: Appropriate mood and affect. Normal interaction. Course Vital Signs Vital signs: Vital Signs Pulse Rate 88 08/26/24 19:41 Respiratory Rate 21 H 08/26/24 19:41 Blood Pressure 165/103 H 08/26/24 19:41 Pulse Oximetry 97 08/26/24 19:41 Oxygen Delivery Room Air 08/26/24 19:41 Pulse Rate 91 08/26/24 22:00 Respiratory Rate 19 08/26/24 22:00 Blood Pressure 153/102 H 08/26/24 19:47 Pulse Oximetry 97 08/26/24 22:00 Oxygen Delivery Room Air 08/26/24 19:46 MDM - Chest Pain MDM Narrative Medical decision making narrative: Patient is a 54-year-old male who presents to the ER following a near syncopal episode. He reports he was working outside today. Patient started experiencing GERD so he went inside and took Tums. He reports he took a shower, sat on the couch, and started feeling nauseated. Patient reports he got up and became dizzy when standing. He reports he dropped to his knees and call for his . Patient got up again and once again felt dizzy. His reports he looked pale and ashy. Patient denies loss of consciousness. He reports he went to his primary care provider 2 weeks ago and had high blood pressure but everything else was within normal limits. Patient endorses mild right upper quadrant abdominal pain that radiates to his back. He denies any shortness of breath, urinary symptoms, lower extremity edema, headaches or fevers. Patient endorses a history of cholecystitis and hypertension but he is not medicated for the hypertension yet. Labs Ordered: CBC, CMP, lactic acid (refused), blood cultures (refused), troponin (pt refused second troponin), UDS, UA, TSH, PTT, INR Imaging Ordered: Chest x-ray, CT chest abdomen pelvis Medications Ordered: Patient refused pain medication, patient refused IV bolus, patient refused Zosyn IV Results: Patient's CBC indicates white blood cell count of 10.3. His CMP indicates a glucose of 111. Patient's troponin was within normal limits. His TSH was within normal limits. Patient's urinalysis was unremarkable and his UDS was negative. Patient's abdominal CT scan indicates wall thickness the gallbladder, concerning for acute cholecystitis. Minimal cholecystic edema. Surgical evaluation recommended. Diagnosis: Acute cholecystitis Consults: [id number]-Spoke with general surgeon, Dr. Alfonso, who reports patient may go home on oral antibiotics. Patient should follow-up with General surgery patient. He should follow a low-fat diet at home. Patient Education/Shared MDM: Results of lab work and imaging shared with patient. He reports his pain is well-controlled and does not require any pain medication. Patient strongly advised to maintain hydration status and consume a low-fat diet upon discharge. He should follow-up with general surgery as soon as possible. He will be discharged home with a prescription for Augmentin. Strict return precautions provided. Patient verbalized understanding and is in agreement with plan. Vital signs stable at time of discharge. All questions answered. Differential Diagnosis Differential diagnosis: Likely atypical chest pain, st elevation myocardial infarction, costochondritis and other (Cholecystitis, small bowel obstruction) Lab Data Attestation: I reviewed the patient's lab results. 08/26/24 19:51 08/26/24 19:50 Labs: Lab Results 08/26/24 08/26/24 08/26/24 Range/Units 19:50 19:51 21:14 WBC 10.3 H (4.5-10.0) K/mm3 RBC 5.65 (4.6-6.20) M/mm3 Hgb 17.5 (14.0-18.0) g/dL Hct 51.4 (42.0-52.0) % MCV 91.0 (80-100) fl MCH 31.0 (26-34) pg MCHC 34.0 (32-36) g/dl RDW 13.2 (11.5-14.5) % Plt Count 247 (150-375) k/mm3 MPV 9.4 (7.4-10.4) fl Immature Gran % (Auto) 0.2 (0-0.5) % Neut % (Auto) 69.0 (45.5-73.1) % Lymph % (Auto) 17.6 L (18.3-44.2) % [place] % (Auto) 7.6 (2.6-8.5) % Eos % (Auto) 5.1 H (0-4.4) % Baso % (Auto) 0.5 (0.2-1.2) % Lymph # (Auto) 1.81 (0.9-3.2) K/mm3 [place] # (Auto) 0.8 H (0.1-0.6) K/mm3 Eos # (Auto) 0.5 H (0-0.3) K/mm3 Baso # (Auto) 0.1 (0.0-0.1) K/mm3 Abs Immat Gran (auto) 0.02 (0.00-0.031) K/mm3 Absolute Neuts (auto) 7.1 H (1.3-6.7) K/mm3 Absolute Nucleated RBC 0.000 (0.0-0.012) K/mm3 Nucleated RBC % 0.0 (0.0-0.2) % PT 13.8 (11.1-14.7) Seconds INR 1.0 APTT 29.3 (22.3-36.8) Seconds Sodium 139 (137-145) mmol/L Potassium 3.7 (3.4-5.0) mmol/L Chloride 103 (98-107) mmol/L Carbon Dioxide 26 (22-30) mmol/L Anion Gap 10 (4-12) mmol/L BUN 20 (9-20) mg/dL Creatinine 1.02 (0.7-1.3) mg/dL Estim Creat Clear Calc 86 ml/min Estimated GFR > 60 (59 - ) Glucose 111 H (65-110) mg/dL Calcium 9.5 (8.4-10.2) mg/dL Total Bilirubin 0.5 (0.2-1.3) mg/dL AST 26 (17-59) U/L ALT 24 (6-50) U/L Alkaline Phosphatase 54 (38-126) U/L Troponin I < 0.012 (0.000-0.034) ng/mL Total Protein 8.0 (6.3-8.2) g/dL Albumin 4.5 (3.5-5.1) g/dL Lipase 55 (23-300) U/L TSH (Reflex) 3.230 (0.465-4.68) uIU/mL Urine Color Yellow (Yellow) Urine Appearance Clear (Clear) Urine pH 7.0 (5.0-9.0) Ur Specific Van > 1.045 H (1.001-1.035) Urine Protein Negative (Negative) mg/dL Urine Glucose (UA) Negative (Negative) mg/dL Urine Ketones Negative (Negative) mg/dL Ur Blood (Man) Negative (Negative) Urine Nitrate Negative (Negative) Urine Bilirubin Negative (Negative) Urine Urobilinogen 0.2 (<2.0) mg/dL Leukocyte Esterase Rfl Negative (Negative) NANCY/UL Urine Opiates Screen Negative (Negative) Urine Methadone Screen Negative (Negative) Ur Barbiturates Screen Negative (Negative) Ur Phencyclidine Scrn Negative (Negative) Ur Amphetamine Screen Negative (Negative) U Benzodiazepines Scrn Negative (Negative) Urine Cocaine Screen Negative (Negative) U Cannabinoids Screen Negative (Negative) Imaging Data Attestation: I personally reviewed and interpreted this imaging study as follows: Radiologist's impression: Patient's abdominal CT scan indicates wall thickness the gallbladder, concerning for acute cholecystitis. Minimal cholecystic edema. Surgical evaluation recommended. Discharge Plan Discharge Clinical Impression: Cholecystitis, Elevated blood pressure reading Patient Disposition: Home Condition: Guarded Prognosis Instructions: Antibiotic Form, Cholecystitis (ED) Additional Instructions: Please return to the ER with any worsening symptoms. Follow-up with General surgery as soon as possible. Take all medications as prescribed, including regularly scheduled medications. Complete your full dose of antibiotics. Patient Language: Ecuadorean Prescriptions: New amoxicillin-pot clavulanate 875-125 mg tablet 1 tablet PO Q12H Qty: 20 0RF No Action (DME) BD Eclipse 25 gauge x 1 needle See Rx Instructions .Route Qty: 100 1RF Rx Instructions: USE TO INJECT TESTOSTERONE (DME) BD Luer-Mita Syringe 3 mL 20 gauge x 1 syringe See Rx Instructions .Route Qty: 100 0RF Rx Instructions: Use to draw up testosterone testosterone cypionate [Depo-Testosterone] 200 mg/mL oil 140 mg IM WEEKLY Qty: 10 1RF Follow-up/Referrals: rTent Alfonso DO [Physician] - (general surgery) Janusz Purdy DO [Primary Care Provider] - Time of Disposition: 01:10
--- OUTSIDE RECORDS SUMMARY | 2024-08-26 20:44 | XMS_ITS | Clinical Summary ---
Author Organization [address] Address [address] [place] [address] Care Team Providers Care Case Managers Name Role Phone No, Physician Primary Care Provider [phone] Allergies Active Allergy Reactions Criticality Noted Date [...] without restrictions. He will be released at [facility]. Assessment & Plan (01/08/2021 3:02 PM [...] that time, he will be released at [facility]. 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
--- OUTSIDE RECORDS SUMMARY | 2024-08-26 20:44 | XMS_ITS | Referral Summary ---
Author Organization [address] Address [address] [place] [address] Care Team Providers Care Director Radiation Oncology Name Role Phone No, Physician Primary Care Provider [phone] Allergies Active Allergy Reactions Criticality Noted Date [...] without restrictions. He will be released at [facility]. Assessment & Plan (01/08/2021 3:02 PM [...] that time, he will be released at [facility]. 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
[2024-08-26 21:20] LABS: Add Urine Microscopic? NO; Appearance Urine Clear (Clear); Bilirubin Urine Negative (Negative); Blood Urine Negative (Negative); Color Urine Yellow (Yellow); Glucose Urine UA Negative (Negative); Ketones Urine Negative (Negative); Leukocyte Esterase Ur Negative LEU/UL (Negative); Nitrate Urine Negative (Negative); Protein Urine Negative (Negative); Specific Grav Ur > 1.045 (1.001-1.035); Urobilinogen Urine 0.2 mg/dL (<2.0)
[2024-08-26 21:35] LABS: Amphetamine Screen Urine Negative (Negative); Barbiturate Screen Urine Negative (Negative); Benzodiazepines Screen Urine Negative (Negative); Cannabinoid Screen Urine Negative (Negative); Cocaine Screen Urine Negative (Negative); Methadone Screen Urine Negative (Negative); Opiate Screen Urine Negative (Negative); Phencyclidine Screen Urine Negative (Negative)
--- NOTE | 2024-08-26 23:36 | PC.NURSE ---
Assumed care of patient at this time.
--- NOTE | 2024-08-27 00:05 | PC.NURSE ---
went and updated patient on plan of care, and patient stated that he removed his IV and placed it in the sharps container
[2024-08-27] MEDS: AMOXICILLIN/CLAVULANATE K 875-125 MG TAB 1 TABLET PO (01:13)
== END 2024-08-27 01:21 | disposition home or self-care (01) ==
PROVIDERS: Emergency Medicine; Emergency Provider Registered Nurse; PCP Internal Medicine
DX: K81.9 Cholecystitis, unspecified (principal); R03.0 Elevated blood-pressure reading, without diagnosis of hypertension; Z72.0 Tobacco use
CPT/HCPCS: 36415; 71046; 71260; 74177; 80053; 80307; 81003; 83690; 84443; 84484; 85025; 85610; 85730; 93005; 99284; A9270; J7030; Q9967

== ENCOUNTER 2024-08-28 18:30 | Observation (INO) | payer OTHER, SELFPAY ==
--- NOTE | ~2024-08-28 | XR_ITS ---
CHEST RADIOGRAPH, PA AND LATERAL CLINICAL HISTORY: chest pain . COMPARISON: 08/26/2024 TECHNIQUE: PA and lateral views of the chest. FINDINGS The cardiomediastinal silhouette is unremarkable. The lungs are clear. Visualized osseous structures and soft tissues are unremarkable. IMPRESSION: No focal infiltrate or effusion. Reviewed, dictated and finalized at location A.
--- NOTE | 2024-08-28 18:33 | ECG_ITS ---
Test Date: 2024-08-28 18:41:59 Measurements Intervals [place] Rate: 109 P: 29 WV: 165 QRS: -1 QRSD: 94 T: 39 QT: 311 QTc: 420 Interpretive Statements SINUS TACHYCARDIA INFERIOR MYOCARDIAL INFARCTION , PROBABLY OLD [40+ ms Q WAVE AND/OR ST/T ABNORMALITY IN II/aVF] Compared to ECG 08/26/2024 19:42:49 Myocardial infarct finding now present Electronically Signed On 08-29-2024 16:33:56 CDT by Mary Carrera M.D.
--- OUTSIDE RECORDS SUMMARY | 2024-08-28 18:33 | XMS_ITS | Referral Summary ---
Author Organization [address] Address [address] [place] [address] Care Team Providers Care Silk Snapper Name Role Phone No, Physician Primary Care Provider [phone] Allergies Active Allergy Reactions Criticality Noted Date [...] restrictions. He will be released at [facility]. Assessment & Plan (01/08/2021 3:02 [...] time, he will be released at [facility]. 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
--- OUTSIDE RECORDS SUMMARY | 2024-08-28 18:33 | XMS_ITS | Clinical Summary ---
Author Organization [address] Address [address] [place] [address] Care Team Providers Care Food Service Order Clerk Name Role Phone No, Physician Primary Care Provider [phone] Allergies Active Allergy Reactions Criticality Noted Date [...] without restrictions. He will be released at [facility]. Assessment & Plan (01/08/2021 3:02 PM [...] that time, he will be released at [facility]. 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
[2024-08-28 18:34] VITALS: BP 161/98; PULSE 96; RESP 16; TEMP 36.6; O2SAT 98
[2024-08-28 19:02] LABS: Basophils Absolute Auto 0.1 K/mm3 (0.0-0.1); Basophils Percent Auto 0.6 % (0.2-1.2); Eosinophils Absolute Auto 0.5 K/mm3 (0-0.3); Eosinophils Percent Auto 4.5 % (0-4.4); Hematocrit 54.6 % (42.0-52.0); Hemoglobin 18.7 g/dL (14.0-18.0); Immature Granulocyte Absolute 0.03 K/mm3 (0.00-0.031); Immature Granulocyte Percent A 0.3 % (0-0.5); Lymphocytes Absolute Auto 2.46 K/mm3 (0.9-3.2); Lymphocytes Percent Auto 20.6 % (18.3-44.2); Mean Corpuscular HGB Conc 34.2 g/dl (32-36); Mean Corpuscular Hemoglobin 31.1 pg (26-34); Mean Corpuscular Volume 90.7 fl (80-100); Mean Platelet Volume 9.4 fl (7.4-10.4); Monocytes Absolute Auto 0.7 K/mm3 (0.1-0.6); Neutrophils Absolute Auto 8.1 K/mm3 (1.3-6.7); Platelet Count Result 260 k/mm3 (150-375); Red Blood Count 6.02 M/mm3 (4.6-6.20); Red Cell Distribution Width 13.2 % (11.5-14.5); White Blood Count 11.9 K/mm3 (4.5-10.0)
[2024-08-28 19:13] LABS: Alanine Aminotransferase 27 U/L (6-50); Albumin Level 4.6 g/dL (3.5-5.1); Alkaline Phosphatase 50 U/L (38-126); Anion Gap 12 mmol/L (4-12); Aspartate Amino Transferase 31 U/L (17-59); Bilirubin,Total 0.4 mg/dL (0.2-1.3); Blood Urea Nitrogen 16 mg/dL (9-20); Calcium 9.4 mg/dL (8.4-10.2); Carbon Dioxide 25 mmol/L (22-30); Chloride 102 mmol/L (98-107); Estimated CRCL calculation 97 ml/min; Estimated Glomerular Filt Rate > 60; Glucose 166 mg/dL (65-110); Lipase 81 U/L (23-300); Potassium 3.9 mmol/L (3.4-5.0); Sodium 139 mmol/L (137-145)
[2024-08-28 19:16] LABS: Prothrombin Time 13.4 Seconds (11.1-14.7)
[2024-08-28 19:17] LABS: Partial Thromboplastin Time 30.2 Seconds (22.3-36.8)
[2024-08-28 19:28] LABS: Troponin I < 0.012 ng/mL (0.000-0.034)
--- NOTE | 2024-08-28 21:21 | ECG_ITS ---
Test Date: 2024-08-28 21:34:00 Measurements Intervals [place] Rate: 99 P: 29 [place]: 173 QRS: -12 QRSD: 91 T: 39 QT: 309 QTc: 397 Interpretive Statements SINUS RHYTHM INFERIOR MYOCARDIAL INFARCTION , PROBABLY OLD Compared to ECG 08/28/2024 18:41:59 Sinus tachycardia no longer present Electronically Signed On 08-29-2024 16:36:12 CDT by Mary Carrera M.D.
[2024-08-28 22:07] LABS: Troponin I < 0.012 ng/mL (0.000-0.034)
[2024-08-28 23:17] VITALS: BP 178/95; PULSE 95; RESP 22; TEMP 36.6; O2SAT 95
[2024-08-28 23:19] VITALS: PULSE 94
[2024-08-29] VITALS (15 sets, daily range): BP systolic 129–171; BP diastolic 76–116; PULSE 77–99; RESP 14–19; TEMP 36.2–36.7; O2SAT 93–99; BMI 33.1
--- NOTE | 2024-08-29 00:10 | ED_ITS ---
HPI - Arrhythmia/Palpitations General Chief Complaint: Arrhythmia/Palpitations Stated Complaint: Heart racing, shaky, point tenderness under ribs Time Seen by Provider: 08/28/24 23:50 History of Present Illness HPI narrative: 54-year-old male with a past medical history including hypertension and hypogonadism on testosterone. Patient presents to the emergency department with recurrence of his right upper quadrant pain associated with feeling lightheaded and dizzy. Patient states the pain is right upper quadrant starts whenever he eats or drinks anything and radiates towards his back. He was evaluated in the emergency department 1 day ago and diagnosed with acute cholecystitis and refused admission at that time and wished to go home on antibiotics and see surgery outpatient. He attempted to get this done and has been taking Augmentin that was prescribed to him and try to contact Dr. Alfonso. There is a scheduled outpatient appointment tomorrow morning but he was instructed to go to the ER if he has any worsening or new symptoms. Patient is having recurrence of his pain so he came to the ER. Patient states symptoms started 1:00 p.m. after he tried eat lunch and lasted for numerous hours. Presently the pain and symptomatology have improved but he has not had anything to eat or drink since 1:00 p.m. as this causes his symptoms. Denies any present fever chills. Has a history of hypertension but not presently on any medications for this and being evaluated with his primary doctor for this. Patient denies any chest pain or shortness a breath, no lower abdominal pain or urinary complaints. No trauma or injury. He has been taking his Augmentin and pain medications without significant relief of his symptoms. Related Data Allergies Allergy/AdvReac Type Severity Reaction Status Date / Time codeine AdvReac Intermediate Nausea and Verified 08/26/24 19:18 Vomiting Review of Systems 2 Review of Systems: As reviewed above in HPI [facility] Past Medical History Medical History Long-term current use of testosterone cypionate Hypogonadism in male Diverticulitis Fatigue Vitamin D deficiency Lipid screening Hyperglycemia Polyarthralgia Diverticulitis Keloid Surgical History Surgical History H/O vasectomy 1998 History of orthopedic surgery Knee, Wrist, Shoulder, Ankle Family History Family History Father Family history of malignant neoplasm Family history of coronary artery disease Diabetes mellitus Family history of blood dyscrasia Grandparent Family history of primary malignant neoplasm of liver Family history of throat cancer Family history of liver disease Sibling Family history of obesity Mother Family history of blood dyscrasia Depression Other Family history of cardiovascular disease Social History Social History Smoking status: Never smoker Smokeless tobacco user: chewing tobacco Alcohol intake: current Drinks per week: 3 Substance use: never Do You Feel Safe in your Home?: Yes Lack of Transportation: No Lack of Food: Never True Current Housing: Decline to Answer Concerned About Future Housing: Decline to Answer Difficulty Paying Gas/Electric Bills: Decline to Answer Difficulty Paying for Meds: Decline to Answer Currently Unemployed: Decline to Answer Education: Decline to Answer Difficulty w/ Childcare or Family Care: Decline to Answer Living arrangements: with family Gender identity (if verbalized by the patient): Male Exam 2 Narrative: GENERAL: [Well-appearing, well-nourished, and in no acute distress.] HEAD: [Normocephalic, atraumatic.] EYES: [PERRLA and EOMI.] ENT: Nares clear, no rhinorrhea or epistaxis. Mucous membranes moist. NECK: Supple. CHEST: [Clear to auscultation. No respiratory distress.] HEART: [Regular rate and rhythm]. No murmur heard. [Normal peripheral pulses.] ABDOMEN: [Soft, nondistended], tenderness to palpation the right upper quadrant with positive Handy sign, [No rigidity or guarding] EXTREMITIES: Normal range of motion. [No edema.] SKIN: Warm, dry, no rash. NEURO: [No focal deficits]. Alert and oriented [x3.] PSYCH: [Normal mood and affect.] Course Vital Signs Vital signs: Vital Signs Temperature 36.6 C 08/28/24 18:34 Pulse Rate 96 08/28/24 18:34 Respiratory Rate 16 08/28/24 18:34 Blood Pressure 161/98 H 08/28/24 18:34 Pulse Oximetry 98 08/28/24 18:34 Oxygen Delivery Room Air 08/28/24 18:34 Temperature 36.6 C 08/28/24 23:17 Pulse Rate 94 08/28/24 23:19 Respiratory Rate 22 H 08/28/24 23:17 Blood Pressure 178/95 H 08/28/24 23:17 Pulse Oximetry 95 08/28/24 23:17 Oxygen Delivery Room Air 08/28/24 23:17 MDM - Arrhythmia/Palpitations MDM Narrative Medical decision making narrative: 54-year-old male with history of hypertension presenting to the emergency department for repeat evaluation of right upper quadrant pain and tenderness. Patient states that he was diagnosed with acute cholecystitis and seen here in the emergency department and discharged home on the after refusing to be admitted for General surgery evaluation. Patient states that he tried calling General surgery outpatient to schedule appointment and has a office visit tomorrow morning with Dr. Alfonso's office but he was not able to make that appointment yet as his pain got worse and he was told to go the ER. Presently his symptoms are under control but he had prolonged right upper quadrant pain and nauseousness last dizziness after eating at 1:00 p.m.. He is slightly hypertensive here but not emergent. No tachycardia, tachypnea, fever or hypoxia. He has reproducible right upper quadrant pain with tenderness to palpation. No overlying skin changes or injury/trauma. CT scan from the was reviewed and does show distended gallbladder with thickened edematous gallbladder wall and pork cholecystic fluid but no visible stones. Repeat laboratory studies were drawn today and show an increase in his white count from his previous ER visit. LFTs are within normal limits as well as renal function panel normal. Troponin negative, chest x-ray and EKG unremarkable. I discussed the case with general surgeon on-call Dr. Jones and we went over patient's imaging studies, clinical exam and history together. Recommendations to start him on Zosyn, make him NPO, admit him to the hospital for surgery evaluation. Patient agreeable with this plan at this time and admission orders placed as well as p.r.n. medications and antibiotics. Medical Records Attestation: I reviewed the patient's medical records. Lab Data Attestation: I reviewed the patient's lab results. 08/28/24 18:46 08/28/24 18:46 Labs: Lab Results 08/28/24 08/28/24 Range/Units 18:46 21:34 WBC 11.9 H (4.5-10.0) K/mm3 RBC 6.02 (4.6-6.20) M/mm3 Hgb 18.7 H (14.0-18.0) g/dL Hct 54.6 H (42.0-52.0) % MCV 90.7 (80-100) fl MCH 31.1 (26-34) pg MCHC 34.2 (32-36) g/dl RDW 13.2 (11.5-14.5) % Plt Count 260 (150-375) k/mm3 MPV 9.4 (7.4-10.4) fl Immature Gran % (Auto) 0.3 (0-0.5) % Neut % (Auto) 68.0 (45.5-73.1) % Lymph % (Auto) 20.6 (18.3-44.2) % [place] % (Auto) 6.0 (2.6-8.5) % Eos % (Auto) 4.5 H (0-4.4) % Baso % (Auto) 0.6 (0.2-1.2) % Lymph # (Auto) 2.46 (0.9-3.2) K/mm3 [place] # (Auto) 0.7 H (0.1-0.6) K/mm3 Eos # (Auto) 0.5 H (0-0.3) K/mm3 Baso # (Auto) 0.1 (0.0-0.1) K/mm3 Abs Immat Gran (auto) 0.03 (0.00-0.031) K/mm3 Absolute Neuts (auto) 8.1 H (1.3-6.7) K/mm3 Absolute Nucleated RBC 0.000 (0.0-0.012) K/mm3 Nucleated RBC % 0.0 (0.0-0.2) % PT 13.4 (11.1-14.7) Seconds INR 1.0 APTT 30.2 (22.3-36.8) Seconds Sodium 139 (137-145) mmol/L Potassium 3.9 (3.4-5.0) mmol/L Chloride 102 (98-107) mmol/L Carbon Dioxide 25 (22-30) mmol/L Anion Gap 12 (4-12) mmol/L BUN 16 (9-20) mg/dL Creatinine 0.89 (0.7-1.3) mg/dL Estim Creat Clear Calc 97 ml/min Estimated GFR > 60 (59 - ) Glucose 166 H (65-110) mg/dL Calcium 9.4 (8.4-10.2) mg/dL Total Bilirubin 0.4 (0.2-1.3) mg/dL AST 31 (17-59) U/L ALT 27 (6-50) U/L Alkaline Phosphatase 50 (38-126) U/L Troponin I < 0.012 < 0.012 (0.000-0.034) ng/mL Total Protein 8.0 (6.3-8.2) g/dL Albumin 4.6 (3.5-5.1) g/dL Lipase 81 (23-300) U/L Imaging Data Attestation: I personally reviewed and interpreted this imaging study as follows: My impression: Impressions Chest X-Ray 08/28/24 19:16 IMPRESSION: No focal infiltrate or effusion. Discharge Plan Discharge Clinical Impression: Acute cholecystitis, Abdominal pain, acute, right upper quadrant Patient Disposition: Still a Patient Condition: Stable Patient Language: Polish Prescriptions: No Action amoxicillin-pot clavulanate 875-125 mg tablet 1 tablet PO Q12H Qty: 20 0RF (DME) BD Eclipse 25 gauge x 1 needle See Rx Instructions .Route Qty: 100 1RF Rx Instructions: USE TO INJECT TESTOSTERONE (DME) BD Luer-Mita Syringe 3 mL 20 gauge x 1 syringe See Rx Instructions .Route Qty: 100 0RF Rx Instructions: Use to draw up testosterone testosterone cypionate [Depo-Testosterone] 200 mg/mL oil 140 mg IM WEEKLY Qty: 10 1RF Follow-up/Referrals: Janusz Purdy DO [Primary Care Provider] - Time of Disposition: 00:22
--- OUTSIDE RECORDS SUMMARY | 2024-08-29 00:14 | XMS_ITS | Clinical Summary ---
Author Organization [address] Address [address] [place] [address] Care Team Providers Care Client Service Coordinator Name Role Phone No, Physician Primary Care Provider Allergies Active Allergy Reactions Criticality Noted Date [...] without restrictions. He will be released at [facility]. Assessment & Plan (01/08/2021 3:02 PM [...] that time, he will be released at [facility]. 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
--- OUTSIDE RECORDS SUMMARY | 2024-08-29 00:14 | XMS_ITS | Referral Summary ---
Author Organization [address] Address [address] [place] [address] Care Team Providers Care Profiling Machine Set Up Operator Name Role Phone No, Physician Primary Care Provider [phone] Allergies Active Allergy Reactions Criticality Noted Date [...] without restrictions. He will be released at [facility]. Assessment & Plan (01/08/2021 3:02 [...] that time, he will be released at [facility]. 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
[2024-08-29] MEDS: PIPERACILLIN/TAZ 4.5G/NS 100ML 4.5 GM/100 ML BAG IVPB (01:02)
--- NOTE | 2024-08-29 01:39 | ADMGEN ---
This patient, Aaron Mcneal, was admitted to Virtual Bed 3rd Floor-1. Patient/family oriented to hospital policies and general routines including ID bracelet, bed and alarms, visiting hours, pain management, procedures, bathroom and other care routines, personal items, smoking policy, room service/diet, and visiting hours. Information on how to activate the Rapid Response Team has been discussed. Patient/Family are encouraged to report perceived risks to care and to ask questions if they do not understand what they are told or what they should do.
--- NOTE | 2024-08-29 01:56 | PC.NURSE ---
0145 VISITED PT IN ED ROOM 10 TO COMPLETE ADMISSION WHILE PT WAITS FOR A BED. ADMISSION COMPLETE. PT EDUCATED ON BOARDING PROCESS.
[2024-08-29] MEDS: SODIUM CHLORIDE 0.9% IV 1,000 ML 125 ML IV CONT ×2 (03:23→09:01)
--- NOTE | 2024-08-29 08:41 | PM.IMHP ---
H&P: HPI History of Present Illness Date/Time: 08/29/24 08:41 <Hilda Hoskins PA-C - Last Filed: 08/29/24 10:34> Chief Complaint: Right upper quadrant pain <Hilda Hoskins PA-C - Last Filed: 08/29/24 10:34> Narrative: Patient is a 54-year-old male with history of hypertension and hypogonadism (on testosterone) who presented to the ED on 08/28/2024 with complaints of recurrent right upper quadrant pain associated with near-syncope and dizziness. The patient was previously seen in the ED on 08/26/2024 for similar symptoms. He states that he felt like he was going to pass out and became very dizzy after having a meal. A CT scan was performed in the ED and indicated wall thickness in the gallbladder concerning for acute cholecystitis. General surgery was consulted and Dr. Alfonso deemed that the patient was stable to go home on oral antibiotics and follow-up outpatient for surgical evaluation. Appointment was scheduled for today (08/29/2024), but due to worsening symptoms of lightheadedness and dizziness after meals patient returned to the ED yesterday. He did not take any pain medications during this interval, as he stated that he is not experiencing much pain. Patient's last meal was yesterday around 1300 and last bowel movement was yesterday around 1500. No nausea/vomiting/diarrhea. Minimal pain. WBC count 11.9. No fevers overnight, but at bedside reports subjective fevers at home. No prior abdominal surgeries. Currently NPO with continuous IV fluids. <Hilda Hoskins PA-C - Last Filed: 08/29/24 10:34> [facility] Past Medical History Medical History: Medical History Long-term current use of testosterone cypionate Hypogonadism in male Diverticulitis Fatigue Vitamin D deficiency Lipid screening Hyperglycemia Polyarthralgia Diverticulitis Keloid <Hilda Hoskins PA-C - Last Filed: 08/29/24 10:34> Surgical History Surgical History: Surgical History H/O vasectomy 1998 History of orthopedic surgery Knee, Wrist, Shoulder, Ankle <YENNI Cavazos Last Filed: 08/29/24 10:34> Family History Family History: Family History Father Family history of malignant neoplasm Family history of coronary artery disease Diabetes mellitus Family history of blood dyscrasia Grandparent Family history of primary malignant neoplasm of liver Family history of throat cancer Family history of liver disease Sibling Family history of obesity Mother Family history of blood dyscrasia Depression Other Family history of cardiovascular disease <Hilda Hoskins PA-C - Last Filed: 08/29/24 10:34> Social History Social History: Social History Smoking status: Never smoker Smokeless tobacco user: chewing tobacco Alcohol intake: current Drinks per week: 7 Substance use: never Do You Feel Safe in your Home?: Yes Lack of Transportation: No Lack of Food: Never True Current Housing: I Have Housing Concerned About Future Housing: No Difficulty Paying Gas/Electric Bills: No Difficulty Paying for Meds: No Currently Unemployed: No Education: Associate Degree Difficulty w/ Childcare or Family Care: No Living arrangements: with family Gender identity (if verbalized by the patient): Male Spiritual care concerns: No <Hilda Hoskins PA-C - Last Filed: 08/29/24 10:34> Meds Home Medications and Allergies Home medications: Home Medications ?Medication ?Instructions ?Recorded ?Confirmed ?Type safety needles 25 gauge x 1 (BD #100 ea 01/24/24 08/29/24 Rx Eclipse) syringe with needle 3 mL 20 gauge #100 ea 01/25/24 08/29/24 Rx x 1 (BD Luer-Mita Syringe) testosterone cypionate 200 mg/mL 140 mg (0.7 mL) IM WEEKLY #10 mL 06/18/24 08/29/24 Rx intramuscular oil (Depo-Testosterone) <YENNI Cavzaos Last Filed: 08/29/24 10:34> Allergies/Adverse reactions: Allergies Allergy/AdvReac Type Severity Reaction Status Date / Time codeine AdvReac Intermediate Nausea and Verified 08/26/24 19:18 Vomiting <YENNI Cavazos Last Filed: 08/29/24 10:34> Vital Signs Vital Signs - 24 hr 08/28/24 18:34 08/28/24 23:17 08/28/24 23:19 Temperature 97.9 F 97.9 F Pulse Rate 96 95 94 Respiratory Rate 16 22 H Blood Pressure 161/98 H 178/95 H Pulse Oximetry 98 95 Oxygen Delivery Room Air Room Air 08/29/24 03:24 08/29/24 06:49 08/29/24 07:14 Temperature Pulse Rate 96 99 84 Respiratory Rate 17 17 16 Blood Pressure 149/97 H 129/76 153/106 H Pulse Oximetry 96 99 96 Oxygen Delivery 08/29/24 08:15 Temperature 97.5 F L Pulse Rate 88 Respiratory Rate 14 Blood Pressure 146/103 H Pulse Oximetry 98 Oxygen Delivery <YENNI Cavazos Last Filed: 08/29/24 10:34> Exam Const: General: comfortable and no acute distress <YENNI Cavazos Last Filed: 08/29/24 10:34> HENMT: Face/Nose/Sinus: Normal nares present <YENNI Cavazos Last Filed: 08/29/24 10:34> Mouth: Yes moist mucous membranes <YENNI Cavazos Last Filed: 08/29/24 10:34> Eyes: General: appearance normal, both eyes and all related structures <YENNI Cavazos Last Filed: 08/29/24 10:34> Pupils: Equal, round and reactive pupils present <YENNI Cavazos Last Filed: 08/29/24 10:34> Neck: Neck: supple <YENNI Cavazos Last Filed: 08/29/24 10:34> Resp: Effort & Inspection: normal respiratory effort <YENNI Cavazos Last Filed: 08/29/24 10:34> Cardio: Rate: regular rate <RebeccaYENNI Tyler Last Filed: 08/29/24 10:34> GI: Inspection: non-distended <RebeccaYENNI Tyler Last Filed: 08/29/24 10:34> GI Palp: Yes Soft to palpation <RebeccaYENNI Tyler Last Filed: 08/29/24 10:34> Auscultation: normal bowel sounds <RebeccaYENNI Tyler Last Filed: 08/29/24 10:34> Other: Minimal RUQ tenderness. No obvious Handy's sign, but he notes pain with deep inspiration and palpation of RUQ. <YENNI Cavazos Last Filed: 08/29/24 10:34> Skin: General skin exam: normal color and no rashes or lesions noted <YENNI Cavazos Last Filed: 08/29/24 10:34> Neuro: Speech: normal speech <YENNI Cavazos Last Filed: 08/29/24 10:34> Sensory Exam: normal sensation <YENNI Cavazos Last Filed: 08/29/24 10:34> Psych: Mental Status: mental status grossly normal <YENNI Cavazos Last Filed: 08/29/24 10:34> H&P: Results Labs Labs: Short CBC 08/28/24 Range/Units 18:46 WBC 11.9 H (4.5-10.0) K/mm3 Hgb 18.7 H (14.0-18.0) g/dL Hct 54.6 H (42.0-52.0) % Plt Count 260 (150-375) k/mm3 BMP 08/28/24 18:46 Sodium 139 Potassium 3.9 Chloride 102 Carbon Dioxide 25 BUN 16 Creatinine 0.89 Glucose 166 H Calcium 9.4 Cardiac Enzymes 08/28/24 08/28/24 Range/Units 18:46 21:34 Troponin I < 0.012 < 0.012 (0.000-0.034) ng/mL Liver Function 08/28/24 Range/Units 18:46 Total Bilirubin 0.4 (0.2-1.3) mg/dL AST 31 (17-59) U/L ALT 27 (6-50) U/L Alkaline Phosphatase 50 (38-126) U/L Albumin 4.6 (3.5-5.1) g/dL <Hilda Hoskins PA-C - Last Filed: 08/29/24 10:34> Assessment and Plan Assessment and plan (1) Acute cholecystitis: Code(s): K81.0 - Acute cholecystitis <Hilda Hoskins PA-C - Last Filed: 08/29/24 10:34> Status: Acute <YENNI Cavazos Last Filed: 08/29/24 10:34> Assessment and Plan: Patient 54-year-old male who 1st presented to the ED on 08/26 for lightheadedness following meals with associated RUQ pain. CT scan confirmed the diagnosis of acute cholecystitis. General surgery was consulted and patient was sent home on oral antibiotics and instructed to follow up outpatient for surgical consultation. Due to recurrent worsening symptoms, patient returned to ED yesterday (08/28). He has been continued of IV abx and NPO status has been maintained. WBC count 11.9. No fever since admission. Plan for cholecystectomy add-on. Continue IV Zosyn. <Hilda Hoskins PA-C - Last Filed: 08/29/24 10:34> Assessment and Plan: I have seen and discussed patient with Dr. Jones. <Hilda Hoskins PA-C - Last Filed: 08/29/24 10:34> Attestation Supervising Provider Attestation I have personally seen and evaluated the patient today with [employer].? ? I have reviewed any new relevant radiographic and laboratory results.? I have reviewed the [place]odaca elements of the patient's current surgical or medical problems and I have personally performed a substantive portion of the care for this patient.? I personally performed the pertinent physical exam and reviewed and confirmed the patient's medicine list.? ? I have formulated the surgical care plan and I agree with the documented note above. Two days ago with what appeared to be mild acute cholecystitis. At that time he became pain-free in the emergency room and wanted to go home on oral antibiotics and was set up to come to the office to be seen as an outpatient. However last evening he continued to have worsening symptoms and re-presented to the emergency room. A repeat CT scan showed thickened gallbladder wall with pericholecystic fluid and changes consistent with acute cholecystitis. Patient's liver enzymes are normal but he had a slight leukocytosis of 11,000. Today he has mild pain right upper quadrant. The gallbladder is not palpable. He has no peritoneal signs. I think he would benefit from proceeding with a laparoscopic cholecystectomy possible version to open cholecystectomy today. Risks, benefits, indications, and expected outcomes were discussed with the patient and/or family members. Specific risks to include bleeding and possible need for blood transfusion, infection, bile leak, injury to other organs, common bile duct injury, and conversion to open cholecystectomy has been discussed. I have answered all their questions and they agreed to proceed with surgery as outlined above. I did explain to the patient that as the surgery cannot be added on total later this afternoon I would not be available to perform the surgery. I did discuss with them that my partner, Dr. Ortega, would be able to perform a laparoscopic cholecystectomy later today. They agreed to proceed with the surgery with Dr. Ortega. <Shaun Jones MD - Last Filed: 08/29/24 10:39>
[2024-08-29 09:34] LABS: Basophils Absolute Auto 0.1 K/mm3 (0.0-0.1); Basophils Percent Auto 0.4 % (0.2-1.2); Eosinophils Absolute Auto 0.3 K/mm3 (0-0.3); Hematocrit 54.1 % (42.0-52.0); Immature Granulocyte Absolute 0.02 K/mm3 (0.00-0.031); Immature Granulocyte Percent A 0.2 % (0-0.5); Lymphocytes Absolute Auto 1.62 K/mm3 (0.9-3.2); Lymphocytes Percent Auto 14.5 % (18.3-44.2); Mean Corpuscular HGB Conc 33.3 g/dl (32-36); Mean Corpuscular Hemoglobin 30.9 pg (26-34); Mean Corpuscular Volume 92.8 fl (80-100); Mean Platelet Volume 9.4 fl (7.4-10.4); Monocytes Absolute Auto 0.6 K/mm3 (0.1-0.6); Monocytes Percent Auto 5.6 % (2.6-8.5); Neutrophils Absolute Auto 8.5 K/mm3 (1.3-6.7); Neutrophils Percent Auto 76.3 % (45.5-73.1); Platelet Count Result 245 k/mm3 (150-375); Red Blood Count 5.83 M/mm3 (4.6-6.20); Red Cell Distribution Width 13.6 % (11.5-14.5); White Blood Count 11.2 K/mm3 (4.5-10.0)
[2024-08-29 09:49] LABS: Alanine Aminotransferase 24 U/L (6-50); Albumin Level 4.3 g/dL (3.5-5.1); Alkaline Phosphatase 48 U/L (38-126); Anion Gap 6 mmol/L (4-12); Aspartate Amino Transferase 26 U/L (17-59); Bilirubin,Total 0.9 mg/dL (0.2-1.3); Blood Urea Nitrogen 13 mg/dL (9-20); Carbon Dioxide 28 mmol/L (22-30); Chloride 104 mmol/L (98-107); Estimated CRCL calculation 89 ml/min; Estimated Glomerular Filt Rate > 60; Glucose 109 mg/dL (65-110); Potassium 4.3 mmol/L (3.4-5.0); Sodium 138 mmol/L (137-145)
--- NOTE | 2024-08-29 13:50 | WPDHPUPDATE1 ---
History and Physical Update Update Date/Time: 08/29/24 13:50 History and Physical has been reviewed, including an updated exam of the patient. There are NO changes in the patient's condition. Risks, benefits, and alternatives have been discussed and questions answered. Patient agrees to proceed with procedure.
[2024-08-29] MEDS: PIPERACILLN/TAZ 3.375GM/NS50ML 3.375 GM/50 ML BAG IVPB (14:04)
[2024-08-29] MEDS: LACTATED RINGERS 1,000 ML 30 ML IV CONT ×2 (15:15→17:00)
--- NOTE | 2024-08-29 15:21 | WPDANESEPPF ---
Anes - Initial Pre Proc Eval Procedure: Operation Date: 08/29/24 14:30 Proposed Procedures p Laparoscopic Cholecystectomy - Katheryn Ortega MD Date/Time: 08/29/24 15:21 Surgeon: Shaun Jones MD Pre Op Diagnosis: Acute cholecystitis, RUQ pain Patient Data Age: 54 Gender: M Height: 1.73 m Weight: 98.9 kg Last Vital Signs Temp 98.1 F 08/29/24 15:15 Pulse 93 08/29/24 15:15 Resp 16 08/29/24 15:15 BP 158/98 H 08/29/24 15:15 Pulse Ox 98 08/29/24 15:15 O2 Del Method Room Air 08/29/24 15:15 Allergies Allergy/AdvReac Type Severity Reaction Status Date / Time codeine AdvReac Intermediate Nausea and Verified 08/26/24 19:18 Vomiting Home Medications ?Medication ?Instructions ?Recorded ?Confirmed ?Type safety needles 25 gauge x 1 (BD #100 ea 01/24/24 08/29/24 Rx Eclipse) syringe with needle 3 mL 20 gauge #100 ea 01/25/24 08/29/24 Rx x 1 (BD Luer-Mita Syringe) testosterone cypionate 200 mg/mL 140 mg (0.7 mL) IM WEEKLY #10 mL 06/18/24 08/29/24 Rx intramuscular oil (Depo-Testosterone) Laboratory Tests 08/28/24 08/28/24 08/29/24 18:46 21:34 09:25 WBC 11.9 H K/mm3 11.2 H K/mm3 (4.5-10.0) (4.5-10.0) RBC 6.02 M/mm3 5.83 M/mm3 (4.6-6.20) (4.6-6.20) Hgb 18.7 H g/dL 18.0 g/dL (14.0-18.0) (14.0-18.0) Hct 54.6 H % 54.1 H % (42.0-52.0) (42.0-52.0) MCV 90.7 fl 92.8 fl (80-100) (80-100) MCH 31.1 pg 30.9 pg (26-34) (26-34) MCHC 34.2 g/dl 33.3 g/dl (32-36) (32-36) RDW 13.2 % 13.6 % (11.5-14.5) (11.5-14.5) Plt Count 260 k/mm3 245 k/mm3 (150-375) (150-375) MPV 9.4 fl 9.4 fl (7.4-10.4) (7.4-10.4) Immature Gran % (Auto) 0.3 % 0.2 % (0-0.5) (0-0.5) Neut % (Auto) 68.0 % 76.3 H % (45.5-73.1) (45.5-73.1) Lymph % (Auto) 20.6 % 14.5 L % (18.3-44.2) (18.3-44.2) [place] % (Auto) 6.0 % 5.6 % (2.6-8.5) (2.6-8.5) Eos % (Auto) 4.5 H % 3.0 % (0-4.4) (0-4.4) Baso % (Auto) 0.6 % 0.4 % (0.2-1.2) (0.2-1.2) Lymph # (Auto) 2.46 K/mm3 1.62 K/mm3 (0.9-3.2) (0.9-3.2) [place] # (Auto) 0.7 H K/mm3 0.6 K/mm3 (0.1-0.6) (0.1-0.6) Eos # (Auto) 0.5 H K/mm3 0.3 K/mm3 (0-0.3) (0-0.3) Baso # (Auto) 0.1 K/mm3 0.1 K/mm3 (0.0-0.1) (0.0-0.1) Abs Immat Gran (auto) 0.03 K/mm3 0.02 K/mm3 (0.00-0.031) (0.00-0.031) Absolute Neuts (auto) 8.1 H K/mm3 8.5 H K/mm3 (1.3-6.7) (1.3-6.7) Absolute Nucleated RBC 0.000 K/mm3 0.000 K/mm3 (0.0-0.012) (0.0-0.012) Nucleated RBC % 0.0 % 0.0 % (0.0-0.2) (0.0-0.2) PT 13.4 Seconds (11.1-14.7) INR 1.0 APTT 30.2 Seconds (22.3-36.8) Sodium 139 mmol/L 138 mmol/L (137-145) (137-145) Potassium 3.9 mmol/L 4.3 mmol/L (3.4-5.0) (3.4-5.0) Chloride 102 mmol/L 104 mmol/L (98-107) (98-107) Carbon Dioxide 25 mmol/L 28 mmol/L (22-30) (22-30) Anion Gap 12 mmol/L 6 mmol/L (4-12) (4-12) BUN 16 mg/dL 13 mg/dL (9-20) (9-20) Creatinine 0.89 mg/dL 0.98 mg/dL (0.7-1.3) (0.7-1.3) Estim Creat Clear Calc 97 ml/min 89 ml/min Estimated GFR > 60 > 60 (59 - ) (59 - ) Glucose 166 H mg/dL 109 mg/dL (65-110) (65-110) Calcium 9.4 mg/dL 9.0 mg/dL (8.4-10.2) (8.4-10.2) Total Bilirubin 0.4 mg/dL 0.9 mg/dL (0.2-1.3) (0.2-1.3) AST 31 U/L 26 U/L (17-59) (17-59) ALT 27 U/L 24 U/L (6-50) (6-50) Alkaline Phosphatase 50 U/L 48 U/L (38-126) (38-126) Troponin I < 0.012 ng/mL < 0.012 ng/mL (0.000-0.034) (0.000-0.034) Total Protein 8.0 g/dL 8.0 g/dL (6.3-8.2) (6.3-8.2) Albumin 4.6 g/dL 4.3 g/dL (3.5-5.1) (3.5-5.1) Lipase 81 U/L (23-300) Blood Type Antibody Screen 08/29/24 11:15 WBC RBC Hgb Hct MCV MCH MCHC RDW Plt Count MPV Immature Gran % (Auto) Neut % (Auto) Lymph % (Auto) [place] % (Auto) Eos % (Auto) Baso % (Auto) Lymph # (Auto) [place] # (Auto) Eos # (Auto) Baso # (Auto) Abs Immat Gran (auto) Absolute Neuts (auto) Absolute Nucleated RBC Nucleated RBC % PT INR APTT Sodium Potassium Chloride Carbon Dioxide Anion Gap BUN Creatinine Estim Creat Clear Calc Estimated GFR Glucose Calcium Total Bilirubin AST ALT Alkaline Phosphatase Troponin I Total Protein Albumin Lipase Blood Type O Positive Antibody Screen Negative Patient hx anesthesia problems: none Family hx anesthesia problems: none Results Review: All pre-operative results and documents have been reviewed as part of the pre-operative evaluation. [facility] Past Medical History Medical History Long-term current use of testosterone cypionate Hypogonadism in male Diverticulitis Fatigue Vitamin D deficiency Lipid screening Hyperglycemia Polyarthralgia Diverticulitis Keloid Surgical History Surgical History H/O vasectomy 1998 History of orthopedic surgery Knee, Wrist, Shoulder, Ankle Family History Family History Father Family history of malignant neoplasm Family history of coronary artery disease Diabetes mellitus Family history of blood dyscrasia Grandparent Family history of primary malignant neoplasm of liver Family history of throat cancer Family history of liver disease Sibling Family history of obesity Mother Family history of blood dyscrasia Depression Other Family history of cardiovascular disease Social History Social History Smoking status: Never smoker Smokeless tobacco user: chewing tobacco Alcohol intake: current Drinks per week: 7 Substance use: never Do You Feel Safe in your Home?: Yes Lack of Transportation: No Lack of Food: Never True Current Housing: I Have Housing Concerned About Future Housing: No Difficulty Paying Gas/Electric Bills: No Difficulty Paying for Meds: No Currently Unemployed: No Education: Associate Degree Difficulty w/ Childcare or Family Care: No Living arrangements: with family Gender identity (if verbalized by the patient): Male Spiritual care concerns: No Anes - Eval Final PreProcedure Day of Procedure 08/29/24 15:21 Patient weight: obese Lungs: normal air movement Airway: Mallampati scale class II Neurological: alert and oriented Last oral intake: >/= 8 hours ASA classification: II Emergent: no Anesthetic plan: proceed Anesthesia type and monitoring: general ETT and standard monitoring Results Review: All pre-operative results and documents have been reviewed as part of the pre-operative evaluation. Pt denies being treated for HTN. Overall physically active job, no cp or sob w working related tasks. Informed Consent: The patient's anesthetic plan and its attendant risks and benefits were discussed with the patient/family/POA. Questions were solicited and answers provided to the satisfaction of the patient/family/POA.
[2024-08-29] MEDS: BUPIVACAINE/EPINEPHRINE 0.5% 50 ML VIAL 30 ML INFILTRATE (15:47)
--- NOTE | 2024-08-29 16:10 | S_PTH ---
PATIENT: Aaron Mcneal LOC: [id number] U#:[id number] AGE/SX: 54/M ROOM: 317 RE08/29/[address]: Katheryn Ortega MD : 1970 BED: 02 DIS: 08/29/2024 SPEC #: [id number] RECD: 08/30/24 07:09 STATUS: JAMEY REQ #: [id number] ASIF: 08/29/24 16:[address]: Katheryn Ortega DEPT: [facility] Surgical RECD BY: Keira Russo ENTERED: 08/30/24 07:10 SP TYPE: Surgical OTHR DR: MD Janusz Holguin, Tissues: A - Gallbladder Procedures: Hematoxylin and Eosin Stain Gross and Microscopic Level 3
[2024-08-29] MEDS: fentaNYL CITRATE INJ (*CRX) 100 MCG/2 ML VIAL 25 MCG IV PUSH ×6 (16:30→17:16)
--- NOTE | 2024-08-29 16:33 | P.OP_ITS ---
Procedure Note - Detailed Date of Procedure 08/29/24 Pre-op Diagnosis Acute cholecystitis Post-op Diagnosis Same Procedure Performed Laparoscopic cholecystectomy Surgeon Katheryn Ortega MD Anesthesia General Indications 54-year-old male presenting to the emergency department with acute cholecystitis Findings acute cholecystitis Description of Procedure The patient was taken to the operating room placed in the supine position. After adequate induction of general anesthesia, the patient was prepped and draped in normal sterile fashion. A time-out was then performed to verify the patient's identity as well as the procedure being performed. I then made a 5 mm incision in the infraumbilical region. Through this, a Veress needle was placed into the peritoneal cavity and CO2 gas was then insufflated. After adequate pneumoperitoneum was achieved, the Veress needle was removed and a 5 mm optiview trocar was placed through this incision under direct visualization. I then placed the laparoscope through this trocar site and under direct visualization placed a further 12 mm subxiphoid port as well as 2 additional 5 mm ports in the right upper abdomen. The gallbladder was then identified and was noted to be inflamed and distended. I was able to place a grasper at the dome of the gallbladder and this was retracted anterior and cephalad up over the liver. A 2nd retractor was then placed at the infundibulum and retracted laterally, this allowed visualization of the triangle of Calot. I then was able to visualize the cystic duct in its entirety from its proximal insertion into the gallbladder , to its distal junction with the common hepatic/common bile duct junction. At this point, I carefully skeletonized the proximal cystic duct with the [place] dissector. I then clipped and transected the proximal cystic duct. Next I visualized the cystic artery. Again the artery was skeletonized, clipped, and transected. I then used the Bovie cautery to take down the peritoneal attachments of the gallbladder off the liver bed. This was somewhat difficult given the amount of inflammation in the posterior space. Once the gallbladder specimen was completely detached, an endo-pouch was placed through the 12 mm port site. I then placed the gallbladder specimen into the Endo pouch and removed the endo-pouch from the 12 mm port site. The specimen will now be sent to pathology for further review. I then copiously irrigated the right upper quadrant. Some mild oozing was noted in the liver bed and this was controlled with the bovie cautery. Hemostasis was noted in the liver bed, the clips were noted to be in good position on both the cystic duct stump and the cystic artery stump. No other pathology was noted in the right upper quadrant. I then moved the laparoscope to the subxiphoid port. No iatrogenic injury or other pathology was noted in the lower abdomen. I then closed the 12 mm trocar site under direct visualization using the Jass cone and 0 Vicryl suture. At this point, the abdomen was desufflated and all ports removed. All port sites were then closed with 4.O Monocryl subcuticular sutures. Dermabond was placed on each incision. The patient tolerated the procedure well and was extubated in the operating room postoperatively. He will be transferred to the recovery room in stable condition Estimated Blood Loss 10 Drains No Packing No Pathology Yes Complications No immediate complications Condition Stable Disposition PACU [facility] Billing Surgery - Charge Forward: Surgery Billing
[2024-08-29] MEDS: ONDANSETRON INJ 4 MG/2 ML VIAL IV PUSH (16:45)
[2024-08-29] MEDS: HYDROcodone/acetaminophen (*CRX) 5-325 MG TABLET 1 TAB PO (18:16)
--- NOTE | 2024-08-30 11:37 | P.DS_ITS ---
DS: Admitting Diagnosis Discharge Date 08/29/24 Admitting Diagnosis Acute cholecystitis DS: Discharge Diagnosis Discharge Diagnosis (1) Acute cholecystitis: Code(s): K81.0 - Acute cholecystitis Status: Acute Assessment and Plan: status post laparoscopic cholecystectomy, routine postoperative care, with p.o. analgesia, follow-up 2 weeks DS: Summary Hospital Course Reason for hospitalization: acute cholecystitis Hospital Course: The patient is a 54-year-old male that presented to the emergency department complaining of severe right upper quadrant abdominal pain, nausea, dizziness. Workup, including imaging, is significant for acute cholecystitis. Patient was admitted to the surgical service and started on IV antibiotics. Upon evaluation, the decision was made for urgent cholecystectomy. The patient was taken to the operating room and laparoscopic cholecystectomy was performed, please see full operative report for details of that procedure. Postoperatively, the patient did well and was transferred back to the surgical floor. He reported that he felt much better postoperatively and his right upper quadrant pain was largely resolved. He was able to tolerate a diet and his pain was well controlled with p.o. analgesia. At this time the patient be discharged home with p.o. analgesia and instructions for routine postoperative care. He will follow up with me in 2 weeks. Status at Discharge Functional status at discharge: independent ambulation Overall status at discharge: patient is progressing back to baseline Time Spent with Patient Time attestation: Total time spent providing and/or coordinating discharge services: Time spent: Less than 30 minutes Exam Const: General: cooperative, comfortable and no acute distress Resp: Auscultation: clear to auscultation bilaterally Cardio: Rate: regular rate Rhythm: regular rhythm GI: Inspection: normal to inspection, distended and incision GI Palp: Yes abdominal tenderness and Yes Soft to palpation DS: Data Data Completed and Pending Pending studies at discharge: Pending at discharge 08/29/24 16:10 Surgical [PTH] Routine Labs on day of discharge: Labs from last 24 hours 08/29/24 11:15 Blood Type O Positive Antibody Screen Negative Discharge Plan Discharge Attending physician on discharge: Shuan Jones Consulting providers: Hilda Hoskins; Mary Carrera; Jarrell Cohn; Betzy Styles Discharging Clinician: Katheryn Ortega Patient Disposition: Home Activity: as tolerated Diet: as tolerated Wound Care Instructions: incision open to air Discharge Instructions: DISCHARGE INSTRUCTION SHEET FOR HERNIA, GALLBLADDER AND APPENDIX SURGERIES DR. ORTEGA PATIENT TO TAKE HOME 1. May shower in 24 hours, no soaking in bath x 2weeks. 2. Call office for: * Wound increasingly painful or bleeding * Vomiting * Fever of greater than 101 degrees 3. If no bowel movement for three days, take 1 oz. (30 ml) Milk of Magnesia or MiraLax 17g 1 to 2 times daily. 4. No heavy lifting > 10-15 pounds x 6 weeks for hernia repairs and 2 weeks for laparoscopic cholecystectomy or appendectomy. 5. No driving for 3 days or while taking narcotic pain medications. 6. Ice to surgical site for 48 hours (30 min on, then 30 min off). 7. Up walking 10-30 minutes three times per day. 8. Resume previous home medications. 9. Follow-up 10-14 days in office for wound check or as previously scheduled. ([phone]) 10. Oral pain medications prescription to be sent to pharmacy. Take Tylenol 500mg every 6 hours and Ibuprofen 600mg every 6 hours for the first 2 days, then as needed. 11. NUTRITION: Start out by drinking fluids and increase your diet as tolerated. If you experience nausea, try dry toast, crackers, and 7-UP. If nausea or vomiting persists, contact your surgeon?s office. 12. Gallbladders-Low Fat Diet for 2 weeks (send care note of low fat diet) 13. Inguinal Hernias-wear scrotal support for 48 hours 14. Abdominal Hernias-if sent home with abdominal binder, wear for the first 2 weeks (may remove to shower or at night to sleep). Revised 04/2020 Patient Instructions: Antibiotic Form Patient Language: Romansh Stand Alone Forms: General Discharge Information Follow-up/Referrals: Katheryn Ortega MD [Physician] - 2 Weeks Discharge Medications: New hydrocodone-acetaminophen 5-325 mg tablet 1 tablet PO Q6H PRN (Reason: pain) Qty: 20 0RF No Action (DME) BD Eclipse 25 gauge x 1 needle See Rx Instructions .Route Qty: 100 1RF Rx Instructions: USE TO INJECT TESTOSTERONE (DME) BD Luer-Mita Syringe 3 mL 20 gauge x 1 syringe See Rx Instructions .Route Qty: 100 0RF Rx Instructions: Use to draw up testosterone testosterone cypionate [Depo-Testosterone] 200 mg/mL oil 140 mg IM WEEKLY Qty: 10 1RF Date of admission: 08/29/24 00:22 Primary Care Provider: Janusz Purdy Admitting Provider: Shaun Jones Attending physician on admission: Katheryn Ortega Condition: Stable
--- NOTE | 2024-08-30 12:52 | P.DS_ITS ---
DS: Admitting Diagnosis Discharge Date 08/29/24 Admitting Diagnosis Acute cholecystitis DS: Discharge Diagnosis Discharge Diagnosis (1) Acute cholecystitis: Code(s): K81.0 - Acute cholecystitis Status: Acute DS: Summary Hospital Course Reason for hospitalization: Patient presented to the emergency department on 08/28/2024 complaints of right upper quadrant pain associated with near-syncope and dizziness. He was previously seen on 08/26/2024 for similar symptoms for which he was sent home on oral antibiotics. Due to increasing symptoms he returned to the ED. Laparoscopic cholecystectomy was performed by Dr. Ortega on 08/29/24. Patient was stable after surgery and discharged from the hospital. Hospital Course: Patient presented to the emergency department on 08/28/2024 complaints of right upper quadrant pain associated with near-syncope and dizziness. He was previously seen on 08/26/[address] scan indicated wall thickness to the gallbladder concerning for acute cholecystitis. Dr. Alfonso was consulted and patient was sent home on oral antibiotics and scheduled for outpatient follow up on 08/29. However, due to increasing symptoms patient presented to ED on 08/28. In the ED patient did not have any tachycardia tachypnea fever or hypoxia. Time Spent with Patient Time attestation: Total time spent providing and/or coordinating discharge services: DS: Data Data Completed and Pending Pending studies at discharge: Pending at discharge 08/29/24 16:10 Surgical [PTH] Routine Discharge Plan Discharge Attending physician on discharge: Shaun Jones Consulting providers: Hilda Hoskins; Mary Carrera; Jarrell Cohn; Betzy Styles Discharging Clinician: Katheryn Ortega Patient Disposition: Home Activity: as tolerated Diet: as tolerated Wound Care Instructions: incision open to air Discharge Instructions: DISCHARGE INSTRUCTION SHEET FOR HERNIA, GALLBLADDER AND APPENDIX SURGERIES DR. ORTEGA PATIENT TO TAKE HOME 1. May shower in 24 hours, no soaking in bath x 2weeks. 2. Call office for: * Wound increasingly painful or bleeding * Vomiting * Fever of greater than 101 degrees 3. If no bowel movement for three days, take 1 oz. (30 ml) Milk of Magnesia or MiraLax 17g 1 to 2 times daily. 4. No heavy lifting > 10-15 pounds x 6 weeks for hernia repairs and 2 weeks for laparoscopic cholecystectomy or appendectomy. 5. No driving for 3 days or while taking narcotic pain medications. 6. Ice to surgical site for 48 hours (30 min on, then 30 min off). 7. Up walking 10-30 minutes three times per day. 8. Resume previous home medications. 9. Follow-up 10-14 days in office for wound check or as previously scheduled. ([phone]) 10. Oral pain medications prescription to be sent to pharmacy. Take Tylenol 500mg every 6 hours and Ibuprofen 600mg every 6 hours for the first 2 days, then as needed. 11. NUTRITION: Start out by drinking fluids and increase your diet as tolerated. If you experience nausea, try dry toast, crackers, and 7-UP. If nausea or vomiting persists, contact your surgeon?s office. 12. Gallbladders-Low Fat Diet for 2 weeks (send care note of low fat diet) 13. Inguinal Hernias-wear scrotal support for 48 hours 14. Abdominal Hernias-if sent home with abdominal binder, wear for the first 2 weeks (may remove to shower or at night to sleep). Revised 04/2020 Patient Instructions: Antibiotic Form Patient Language: Ukrainian Stand Alone Forms: General Discharge Information Follow-up/Referrals: Katheryn Ortega MD [Physician] - 2 Weeks Discharge Medications: New hydrocodone-acetaminophen 5-325 mg tablet 1 tablet PO Q6H PRN (Reason: pain) Qty: 20 0RF No Action (DME) BD Eclipse 25 gauge x 1 needle See Rx Instructions .Route Qty: 100 1RF Rx Instructions: USE TO INJECT TESTOSTERONE (DME) BD Luer-Mita Syringe 3 mL 20 gauge x 1 syringe See Rx Instructions .Route Qty: 100 0RF Rx Instructions: Use to draw up testosterone testosterone cypionate [Depo-Testosterone] 200 mg/mL oil 140 mg IM WEEKLY Qty: 10 1RF Date of admission: 08/29/24 00:22 Primary Care Provider: Janusz Purdy Admitting Provider: Shaun Jones Attending physician on admission: Katheryn Ortega Condition: Stable
== END 2024-08-29 19:38 | disposition home or self-care (01) ==
LOC: ANHED 08-29 00:22 → ANH3MEDSUR 08-29 09:27
PROVIDERS: Emergency Medicine; Admitting Provider Surgery; Emergency Provider Student in an Organized Health Care Education/Training Program; PCP Internal Medicine; Visit Provider Surgery
PROC: 0FT44ZZ Resection of Gallbladder, Percutaneous Endoscopic Approach (ICD-10-PCS; CPT 47562; principal; 2024-08-29 14:30)
DX: K81.1 Chronic cholecystitis (principal); I10 Essential (primary) hypertension; E29.1 Testicular hypofunction; F17.220 Nicotine dependence, chewing tobacco, uncomplicated; E66.9 Obesity, unspecified; Z68.33 Body mass index [BMI] 33.0-33.9, adult; Z79.899 Other long term (current) drug therapy
CPT/HCPCS: 47562; 36415; 71046; 80053; 83690; 84484; 85025; 85610; 85730; 86850; 86900; 86901; 88304; 93005; 96361; 96365; 96366; 96375; 96376; 99285; A9270; G0378; J1100; J2250; J2405; J2543; J2704; J3010; J7030; J7120

== ENCOUNTER 2025-01-26 11:45 | Emergency (ER) | payer OTHER, SELFPAY ==
--- OUTSIDE RECORDS SUMMARY | 2025-01-26 11:47 | XMS_ITS | Clinical Summary ---
Author Organization [address] Address [address] [place] [address] Care Team Providers Care Chief Accountant Name Role Phone No, Physician Primary Care Provider [phone] Allergies Active Allergy Reactions Criticality Noted Date [...] without restrictions. He will be released at [facility]. Assessment & Plan (01/08/2021 3:02 PM [...] that time, he will be released at [facility]. Assessment & Plan (12/30/2020 5:35 PM [...] on file Legal Sex Male 2:35 AM [employer] Gender Identity Not on file Sexual Orientation [...] on file Insurance [employer] [id number] Care Teams Chief Accountant Relationship Specialty Start Date End Date No, Physician PCP - General 12/30/20
[2025-01-26 11:58] VITALS: BP 166/99; PULSE 117; RESP 18; TEMP 37.2; O2SAT 97
--- NOTE | 2025-01-26 12:05 | ED.URI ---
HPI - URI/Sore Throat General Chief Complaint: Upper Respiratory Infection Stated Complaint: sinus Patient presents to the [facility] with complaints of sinus pressure/pain, headache, nasal drainage, and sore throat that began about 3 days ago. Patient reports he has been using Sudafed and Mucinex without relief of symptoms, reports taking 2 Sudafed about 1 hour prior to arrival at [facility]. Attempted to call primary care office was told they could not see him for 3 weeks. Also noted woke up in the middle of the night sweating believed he had a fever. Denies cough, ear pain, dizziness, shortness of breath, nausea, vomiting, diarrhea. Related Data Allergies Allergy/AdvReac Type Severity Reaction Status Date / Time codeine AdvReac Intermediate Nausea and Verified 01/26/25 11:58 Vomiting Review of Systems Constitutional: Constitutional: Reports as per HPI, Denies chills, Reports fatigue, Reports fever(s) and Denies weakness Eyes: Eyes: Reports no additional eye complaints ENT: Reports as per HPI, Denies vertigo, Denies dizziness, Reports nasal congestion and Reports sore throat Comments: sinus pain Cardiovascular: Cardiovascular: Reports no additional cardiovascular complaints Respiratory: Respiratory: Reports as per HPI, Denies chest congestion, Denies cough, Denies dyspnea and Denies wheezing Gastrointestinal: Gastrointestinal: Reports no additional gastrointestinal complaints Genitourinary: Genitourinary: Reports no additional male genitourinary complaints Musculoskeletal: Musculoskeletal: Reports no additional musculoskeletal complaints Integumentary/Breasts: Skin/Breast: Reports as per HPI, Denies erythema, Denies rash and Denies skin ulcer Neurologic: Reports as per HPI, Denies vertigo, Denies dizziness, Reports headache(s) and Denies weakness Psychiatric: Psychiatric: Reports no additional psychiatric complaints Endocrine: Endocrine: Reports no additional endocrine complaints Hematologic/Lymphatic: Hematologic/Lymphatic: Reports no additional hematologic/lymphatic complaints Allergic/Immunologic: Allergic/Immunologic: Reports as per HPI Comments: seasonal allergies PMFSH Past Medical History Medical History Long-term current use of testosterone cypionate Hypogonadism in male Diverticulitis Fatigue Vitamin D deficiency Lipid screening Hyperglycemia Polyarthralgia Diverticulitis Keloid Surgical History Surgical History Hx laparoscopic cholecystectomy 08/29/[address] Ortega H/O vasectomy 1997 History of orthopedic surgery Knee, Wrist, Shoulder, Ankle Family History Family History Father Family history of malignant neoplasm Family history of coronary artery disease Diabetes mellitus Family history of blood dyscrasia Grandparent Family history of primary malignant neoplasm of liver Family history of throat cancer Family history of liver disease Sibling Family history of obesity Mother Family history of blood dyscrasia Depression Other Family history of cardiovascular disease Social History Social History Smoking status: Never smoker Smokeless tobacco user: chewing tobacco Alcohol intake: current Drinks per week: 7 Substance use: never Do You Feel Safe in your Home?: Yes Lack of Transportation: No Lack of Food: Never True Current Housing: I Have Housing Concerned About Future Housing: No Difficulty Paying Gas/Electric Bills: No Difficulty Paying for Meds: No Currently Unemployed: No Education: Associate Degree Difficulty w/ Childcare or Family Care: No Living arrangements: with family Gender identity (if verbalized by the patient): Male Spiritual care concerns: No Exam Const: General: healthy appearing and no acute distress Nutritional Appearance: well nourished Orientation/consciousness: patient oriented x3 Limitations: no limitations HENMT: Head: normal to inspection Ears: external ears normal and TM's abnormal bilaterally ( dullness bilaterally no erythema or loss of bony landmarks.) Face/Nose/Sinus: Normal external nose present and Normal nares present Face and sinus: normal facial exam and sinus tenderness maxillary Mouth: Yes Normal oral and palatal mucosa present, Yes lip normal and Yes moist mucous membranes Throat: posterior oropharynx abnormal ( Moderate erythema with edema no exudate) Neck: Neck: normal visual inspection and lymphadenopathy ( bilateral anterior cervical) Resp: Effort & Inspection: normal respiratory effort Auscultation: clear to auscultation bilaterally Cardio: Rate: tachycardic Rhythm: regular rhythm Skin: General skin exam: normal color Rashes: no rashes Wounds: no wounds Neuro: General: patient oriented x3 Speech: normal speech Gait exam (Neuro): Normal gait present Psych: Mental Status: mental status grossly normal Affect: normal affect Attitude: cooperative Course Course Level of Care: Express Care Visit Vital Signs Vital signs: Vital Signs Temperature 99 F 01/26/25 11:58 Pulse Rate 117 H 01/26/25 11:58 Respiratory Rate 18 01/26/25 11:58 Blood Pressure 166/99 H 01/26/25 11:58 Pulse Oximetry 97 01/26/25 11:58 Oxygen Delivery Room Air 01/26/25 11:58 Temperature 99 F 01/26/25 11:58 Pulse Rate 117 H 01/26/25 11:58 Respiratory Rate 18 01/26/25 11:58 Blood Pressure 166/99 H 01/26/25 11:58 Pulse Oximetry 97 01/26/25 11:58 Oxygen Delivery Room Air 01/26/25 11:58 MDM - URI/Sore Throat MDM Narrative Medical decision making narrative: flu, COVID, strep testing in Express Care negative testing. Likely viral in nature will send off strep culture. The patient was evaluated by myself in the express care. History is obtained from patient who is an independent historian and physical exam was performed. Available medical records were reviewed at this time. Exam findings show no acute concerns or changes; patient is non-toxic appearing and is in no distress. Patient is appropriate for outpatient treatment and follow-up. I have evaluated and discussed social determinants of health with the patient that could potentially impact subsequent diagnosis and treatment plans. Differential diagnosis and treatment plan were discussed with the patient. Patient agrees with discussion and after shared medical decision making agrees with plan of care. All questions were answered to the patient's satisfaction. Differential Diagnosis Differential diagnosis: Likely upper respiratory infection, croup, otitis media, sinusitis, viral infection, bronchitis, influenza and pharyngitis Medical Records Attestation: I reviewed the patient's medical records. Lab Data Attestation: I reviewed the patient's lab results. Labs: Lab Results 01/26/25 Range/Units 12:15 POC Grp A Strep Screen Negative (Negative) Discharge Plan Discharge Clinical Impression: Upper respiratory infection Patient Disposition: Home Condition: Stable Instructions: Antibiotic Form, Upper Respiratory Infection (ED), Cold Symptoms (ED) Additional Instructions: Viral illness may last between 7-12days; antibiotic is NOT recommended at this time. Recommend antihistamine such as Benadryl at night time and Claritin/Zyrtec/Irene during the day. Also using steroid nasal spray like Flonase can help with symptoms and congestion. Using sudafed for significant congestion will also give some relief. keep a close eye on your heart rate when using this medication. Cough syrup may cause drowsiness; avoid driving or take it at night time. Use inhaler as needed for cough, wheezing, shortness of breath or chest tightness. Also, recommend symptomatic treatment includes: rest, fluids, increase humidity of the air at home. Recommend Acetaminophen or nonsteroidal anti-inflammatory agents(NSAIDs) as directed in the bottle to reduce fever and/pain/headache. Avoid smoking/second-hand smoke. Limit visits to areas with large crowds. Frequent hand washing or hand automotive heavy mechanic is one of the best ways to prevent spread of infection. Please schedule a followup visit with your personal physician for further evaluation and treatment within 3-5days. Including recheck and discussion of your blood pressure. If your symptoms persist, change or worsen significantly before you can contact your personal physician then please, without delay, go to the emergency department for further evaluation. I have sent prednisone to the pharmacy to further help your symptoms. This can also raise your heart rate. Ensure to not take this at the same time as taking Sudafed. Patient Language: Welsh Prescriptions: New prednisone 20 mg tablet 60 mg PO DAILY Qty: 15 0RF No Action lisinopril 10 mg tablet 10 mg PO DAILY Qty: 90 1RF (DME) BD Eclipse 25 gauge x 1 needle See Rx Instructions .Route Qty: 100 1RF Rx Instructions: USE TO INJECT TESTOSTERONE (DME) BD Luer-Mita Syringe 3 mL 20 gauge x 1 syringe See Rx Instructions .Route Qty: 100 0RF Rx Instructions: Use to draw up testosterone testosterone cypionate [Depo-Testosterone] 200 mg/mL oil 140 mg IM WEEKLY Qty: 10 1RF Follow-up/Referrals: Janusz Purdy DO [Primary Care Provider, Internal Medicine] Time of Disposition: 12:23
[2025-01-26 12:16] LABS: EDSTREPNEGPOS1 Negative (Negative)
[2025-01-26 12:26] LABS: EDCOVIDSCREEN Negative (Negative); EDINFLUASCREEN Negative (Negative); EDINFLUBSCREEN Negative (Negative)
== END 2025-01-26 12:26 | disposition home or self-care (01) ==
PROVIDERS: Emergency Provider Nurse Practitioner Family; PCP Internal Medicine
DX: J06.9 Acute upper respiratory infection, unspecified (principal); F17.220 Nicotine dependence, chewing tobacco, uncomplicated; Z20.822 Contact with and (suspected) exposure to COVID-19
CPT/HCPCS: 87081; 87426; 87804; 87880; 99213; G0463